=== PATIENT | female | born 1980 | race African-American/Black ===

== ENCOUNTER 2020-02-06 09:55 | Emergency (ER) | payer OTHER, SELFPAY ==
[2020-02-06] VITALS (7 sets, daily range): BP systolic 107–125; BP diastolic 72–82; PULSE 73–94; RESP 18–22; TEMP 36.3; O2SAT 99–100
--- NOTE | ~2020-02-06 | CT_ITS ---
EXAMINATION: CTA BRAIN/CAROTID DATE: 02/06/2020 12:08 INDICATION: Syncope. Right-sided weakness. TECHNIQUE: Computed tomographic angiography (CTA) of the head and neck was performed with 100 mL Omni paque-350 intravenous contrast. Multiplanar reconstructions and maximum intensity projection 3D-recon structions of the carotid arteries and of the intracranial arteries were created by the technologist on a separate workstation. Automated exposure control and iterative reconstruction technique were emp loyed.The dose-length product was 1063.56 mGy-cm. COMPARISON: Head CT dated 02/06/2020 FINDINGS: Carotid arteries: There is no evident plaque with 0% stenosis of the left and right carotid bulbs relative to normal di stal artery lumen diameter (NASCET criteria). The cervical soft tissues are unremarkable. Visualized airway and apices of the lungs are clear. Smooth likely positional reversal of the normal cervical lo rdosis with otherwise normal-appearing cervical spine. Intracranial arteries There is no hemodynamically significant stenosis in the vertebral, basilar and internal carotid arter ies. Vertebral arteries are codominant. There are no aneurysms identified. Both A1 and P1 segments a re patent. There are also patent bilateral posterior commuting arteries. Cerebral arterial arborizati on appears symmetric. No abnormally enhancing brain lesions. IMPRESSION: 1. Normal CT angiogram of the brain and carotid arteries. Reviewed, dictated and finalized at location A.
--- NOTE | ~2020-02-06 | CT_ITS ---
EXAMINATION: CT brain wo con DATE: 02/06/2020 10:29 INDICATION: Syncope TECHNIQUE: Computed tomography (CT) of the head was performed without intravenous contrast. Sagittal and coronal reconstructions were performed. The mA was adjusted according to patient size. Iterative reconstruction technique was employed. The dose-length product was 681.00 mGy-cm. COMPARISON: head CT dated 04/03/2009 FINDINGS: No acute intracranial hemorrhage, acute infarction or abnormal extra axial fluid collection. Ventricl es are normal and symmetric. No mass/mass effect. The orbits, paranasal sinuses and mastoid air cells are normal. IMPRESSION: 1. Normal head CT. Reviewed, dictated and finalized at location A. IMPRESSION: 1. Normal head CT.
--- NOTE | 2020-02-06 10:05 | ECG_ITS ---
Measurements Intervals [place] Rate: 87 P: 52 MD: 170 QRS: -12 QRSD: 76 T: 25 QT: 363 QTc: 437 Interpretive Statements SINUS RHYTHM WITH MARKED SINUS ARRHYTHMIA DELAYED PRECORDIAL R/S TRANSITION NONSPECIFIC T-WAVE ABNORMALITY- DIFFUSE LEADS BASELINE ARTIFACT- I, II, III, AVR, AVL, AVF, V4-V6 BORDERLINE ECG Electronically Signed On 02-06-2020 10:20:04 CDT by Adrian Pascual D.O.
[2020-02-06 10:43] LABS: Basophils Percent Auto 0.6 % (0.2-1.2); Eosinophils Absolute Auto 0.1 K/mm3 (0-0.3); Eosinophils Percent Auto 1.1 % (0-4.4); Hematocrit 38.5 % (37.0-47.0); Hemoglobin 12.9 g/dL (12.0-15.0); Immature Granulocyte Absolute 0.03 K/mm3 (0.00-0.031); Immature Granulocyte Percent A 0.5 % (0-0.5); Lymphocytes Absolute Auto 1.03 K/mm3 (0.9-3.2); Lymphocytes Percent Auto 16.2 % (18.3-44.2); Mean Corpuscular HGB Conc 33.5 g/dl (32-36); Mean Corpuscular Hemoglobin 28.9 pg (26-34); Mean Corpuscular Volume 86.3 fl (80-100); Mean Platelet Volume 9.7 fl (7.4-10.4); Monocytes Absolute Auto 0.4 K/mm3 (0.1-0.6); Monocytes Percent Auto 5.8 % (2.6-8.5); Neutrophils Absolute Auto 4.8 K/mm3 (1.3-6.7); Neutrophils Percent Auto 75.8 % (45.5-73.1); Platelet Count Result 273 k/mm3 (150-375); Red Blood Count 4.46 M/mm3 (4.2-5.4); Red Cell Distribution Width 12.6 % (11.5-14.5); White Blood Count 6.3 K/mm3 (4.5-10.0)
[2020-02-06 10:56] LABS: Anion Gap 13 mmol/L (8-16); Blood Urea Nitrogen 12 mg/dL (7-17); Calcium 9.1 mg/dL (8.4-10.2); Carbon Dioxide 25 mmol/L (22-30); Chloride 104 mmol/L (98-107); Estimated CRCL calculation 81 ml/min; Estimated Glomerular Filt Rate > 60; Glucose 102 mg/dL (65-105); Potassium 3.2 mmol/L (3.4-5.0); Sodium 142 mmol/L (137-145)
--- NOTE | 2020-02-06 11:45 | PC.NURSE ---
Patient placed on monitor at this time. Reporting that some feeling is coming back in her right arm. Remains AOX4
--- NOTE | 2020-02-06 11:48 | PC.NURSE ---
Patient taken to CT
--- NOTE | 2020-02-06 11:49 | PC.NURSE ---
Patient unable to urinate for preg test. Willing to sign CT release for contrast.
--- NOTE | 2020-02-06 13:09 | ED.SYNCOPE ---
HPI - Syncope General Chief Complaint: Syncope Stated Complaint: syncope at 0830 Time Seen by Provider: 02/06/20 11:01 Source: patient and family Mode of arrival: ambulatory Limitations: no limitations History of Present Illness HPI narrative: Patient is a 39-year-old female who presents to emergency department for evaluation of having possibly had syncope this morning patient upon waking was having difficulty expressing herself as well as numbness on the right upper and lower extremity. Patient notes since the onset around 8:00 this morning the symptoms have improved but she continues to have some residual paresthesias to the right upper and lower extremity. On arrival patient is in the room in no distress does not appear uncomfortable. Patient denies any pain. Patient has not been seen for this complaint nor has she had similar occurrence in the past. Patient has had tremors in the mornings for the last several weeks after starting Cymbalta for anxiety. Patient is followed by primary care Related Data Home Medications Medication Instructions Recorded Confirmed duloxetine mg PO 02/06/20 Allergies Allergy/AdvReac Type Severity Reaction Status Date / Time No Known Allergies Allergy Mild Verified 02/06/20 10:08 Review of Systems Review of Systems: All systems reviewed & are unremarkable except as noted in HPI and below PMFSH Past Medical History Medical History (Updated 02/06/20 @ 13:16 by Luis A Rea PA-C) Anxiety Social History Social History Smoking status: Never smoker Alcohol intake: current Exam Narrative: Exam Narrative: GENERAL: Well-appearing, well-nourished, and in no acute distress. HEAD: Normocephalic, atraumatic. EYES: PERRLA and EOMI. ENT: Nares clear, no rhinorrhea or epistaxis. Mucous membranes moist. NECK: Supple. No adenopathy or masses. No carotid bruits or JVD CHEST: Clear to auscultation. No respiratory distress. No wheezes rales or rhonchi HEART: Regular rate and rhythm. No murmur heard. Normal peripheral pulses. ABDOMEN: Soft, nontender, nondistended, EXTREMITIES: Normal range of motion. No edema. SKIN: Warm, dry, no rash. NEURO: No focal deficits. Alert and oriented x3. Cranial nerves II through XII grossly intact. Normal speech and gait. Motor and sensory intact and symmetrical in the extremities. Cerebellar intact. No pronator drift. Normal nokodb-ov-tutx and zldj-bl-bewu. PSYCH: Normal mood and affect. Course Course Emergency Course: Patient in the room at this time symptom-free aside for some subjective paresthesias to the upper and lower extremities right-sided only. Patient was evaluated and will be discharged home with follow-up with primary care and neurology advised to discontinue the Cymbalta. Patient will be discharged with family patient feels comfortable with this and has been provided with reasons to return Vital Signs Vital signs: Vital Signs Temperature 97.3 F L 02/06/20 10:06 Pulse Rate 73 02/06/20 10:06 Respiratory Rate 20 02/06/20 10:06 Blood Pressure 125/81 02/06/20 10:06 Pulse Oximetry 100 02/06/20 10:06 Temperature 97.3 F L 02/06/20 10:06 Pulse Rate 94 02/06/20 12:00 Respiratory Rate 22 H 02/06/20 12:00 Blood Pressure 122/81 02/06/20 12:00 Pulse Oximetry 100 02/06/20 12:00 MDM - Syncope MDM Narrative Medical decision making narrative: Patient is remained in no distress with no high risk changes in the blood work or imaging today. there are no focal neurological deficits on exam. Subarachnoid hemorrhage is felt to be unlikey at this time. There is no history of fever, and neck is supple without meningismus, making meningitis unlikely. No traumatic history or signs of trauma on exam. No risk factors for CVA, risk factors reviewed. NO ocular signs on exam and in history to suggest acute glaucoma. Patient symptoms felt appropriate for outpatien
== END 2020-02-06 13:26 | disposition home or self-care (01) ==
PROVIDERS: Emergency Provider Emergency Medicine; PCP Emergency Medicine
DX: R20.2 Paresthesia of skin (principal); F41.9 Anxiety disorder, unspecified; R94.31 Abnormal electrocardiogram [ECG] [EKG]
CPT/HCPCS: 36415; 70450; 70496; 70498; 80048; 85025; 93005; 99284; Q9967

== ENCOUNTER → 2021-06-14 09:04 | Outpatient (CLI) | payer OTHER, SELFPAY ==
--- NOTE | ~2021-06-14 | XR_ITS ---
EXAMINATION: XR UGIAC wo kub EXAM DATE: 06/14/2021 10:25 INDICATION: Abdominal pain, bloating, early satiety . TECHNIQUE: Standard single and double contrast barium upper GI examination was performed by radiolog ist Dylan Larose M.D. Pulsed dose reduction fluoroscopy was used with fluoroscopic time of 0.5 minut es. The DAP for this procedure was 0.95 Gycm2. A total of 92 images obtained for the exam. There i s no prior study for comparison. FINDINGS: There is no esophageal stricture, diverticulum or mass identified. Gastroesophageal juncti on is normal in appearance. Reflux was not demonstrated during this examination. The stomach has a normal appearance without evidence of mass lesion, ulceration or filling defect. T here is normal rugal fold pattern. The duodenum and duodenal sweep are normal in appearance. IMPRESSION: Normal exam. Reviewed, dictated and finalized at location B. H CUTTER IMPRESSION: Normal exam.
--- NOTE | ~2021-06-14 | US_ITS ---
EXAMINATION: US abdomen complete DATE: 06/14/2021 09:30 INDICATION: Abdominal pain. TECHNIQUE: Multiple grayscale and Doppler ultrasound images of the abdomen were obtained. COMPARISON: None FINDINGS: Abdominal aorta is normal in caliber. Inferior vena cava is normal. The visualized portions of the head and body of the pancreas are normal. The liver is normal without focal lesion. There is normal flow in main portal vein. The gallbladder is normal in size. No gallstones or gallbladder wall thickening. There is no sonographic Moody sign. The common duct is normal and measures 4 mm. The sp desirae is normal in size. The kidneys are normal in size. IMPRESSION: 1. Normal complete abdomen ultrasound. Reviewed, dictated and finalized at location A. TIC OPERATOR
== END ==
PROVIDERS: PCP Emergency Medicine; Visit Provider Emergency Medicine
DX: R10.9 Unspecified abdominal pain (principal); R14.0 Abdominal distension (gaseous); R68.81 Early satiety
CPT/HCPCS: 74246; 76700

== ENCOUNTER 2022-05-27 12:19 | Outpatient (CLI) | payer OTHER, SELFPAY ==
--- NOTE | ~2022-05-27 | MMUS_ITS ---
EXAMINATION: MM diagnostic mook BI w sandra, US breast BI complete HISTORY: Right breast lump, 9:00 TECHNIQUE: Bilateral full field and spot 3-D tomosynthesis images were performed and synthetic 2-D im ages were generated. CAD analysis was submitted and interpreted. High resolution complete bilateral b reast ultrasound ultrasound examination including all 4 quadrants and subareolar areas was performed. COMPARISON: 10/28/2013 bilateral diagnostic mammogram and bilateral breast ultrasound examination BREAST PARENCHYMAL COMPOSITION: There are scattered areas of fibroglandular density. FINDINGS: MAMMOGRAPHIC FINDINGS: Occasional bilateral circumscribed low-density opacities are noted including posterior lower outer le ft breast 6.7 x 11.5 mm circumscribed opacity (craniocaudal Tomosynthesis image 16/74), posterior lef t upper outer quadrant 4.8 x 7 mm circumscribed opacity (craniocaudal Tomosynthesis image 63/74), 3.2 x 5 mm circumscribed outer mid left circumscribed opacity (cranial caudal Tomosynthesis image 26/74. Partially obscured possible masses of right breast. No architectural distortion, malignant calcifications, skin thickening or retraction of either breast is detected. ULTRASOUND: Right breast: 12:00 1 cm from nipple: Parallel circumscribed hypoechoic solid lesion measuring 5 x 13 x 12.6 mm wit hout internal vascularity or posterior shadowing. 5:00 2 cm from nipple: 2.5 x 8.3 mm largely sonolucent circumscribed lesion without internal vascular ity or posterior shadowing 7:00 8 cm from nipple: 3.8 x 4.4 mm circumscribed sonolucency without internal vascularity or posteri or shadowing 9:00 5 cm from nipple: Irregular hypoechoic sclerotic solid lesion with some angular margins, measuri ng up to 4.8 x 8.5 mm; due to the angular margins, ultrasound-guided biopsy is recommended. 10:00 9 cm from nipple: Parallel circumscribed hypoechoic 2.8 x 4.6 x 3.9 mm lesion without internal vascularity or posterior shadowing Left breast: 12:00 3 cm from nipple: Parallel circumscribed 2.7 x 5.5 mm probable cyst 1:00 8 cm from nipple: Multiseptated parallel circumscribed 6.7 x 17 mm lesion without internal vascu larity or posterior shadowing IMPRESSION: 1. Right breast 9:00 4.8 x 8.5 mm lesion 5 cm from nipple with irregular and angular margins (This co rresponds to the clinically reported right breast lump of interest) 2. Ultrasound-guided biopsy of right breast 9:00 lesion BI-RADS category 4, suspicious findings. Dr. Benton telephoned the report and ultrasound-guided biopsy recommendation of right breast 9:00 lesio n on May 27, [address] Sherman. Reviewed, dictated and finalized at location A. EQUIN SANDER AND FINISHER IMPRESSION: 1. Right breast 9:00 4.8 x 8.5 mm lesion 5 cm from nipple with irregular and an gular margins (This corresponds to the clinically reported right breast lump of interest) 2. Ultrasound-guided biopsy of right breast 9:00 lesion BI-RADS category 4, suspicious findings. Dr. Benton telephoned the report and ultrasound-guided biopsy recommendation of r ight breast 9:00 lesion on May 27, [address] Sherman.
== END 2022-05-27 12:20 | disposition home or self-care (01) ==
LOC: ANHIMG 12:20
PROVIDERS: PCP Emergency Medicine; Visit Provider Emergency Medicine
DX: N63.10 Unspecified lump in the right breast, unspecified quadrant (principal)
CPT/HCPCS: 76641; 77062; 77066; G0279

== ENCOUNTER 2022-06-06 12:47 | Outpatient (CLI) | payer OTHER, SELFPAY ==
--- NOTE | ~2022-06-06 | MMUS_ITS ---
EXAMINATION: US GUIDED NEEDLE BIOPSY DATE: 06/06/2022 14:15 UPPER CUTTER INDICATION: Right 9:00 breast mass with irregular and angular margins TECHNIQUE AND FINDINGS: The risks and potential benefits of the procedure were discussed with the patient, and written inform ed consent was obtained. Timeout procedure was performed. After sterile preparation of the right lolis st, 1% lidocaine was utilized for local anesthesia. A 14G spring-loaded biopsy gun needle was advanced to the edge of the region of interest from a later al approach utilizing sonographic guidance. A total of 4 tissue core samples were obtained through t he lesion. An Inrad tissue marker clip was then placed at the biopsy site. Hemostasis was achieved. A sterile bandage was applied. The patient tolerated procedure well and there was no evidence of immediate complication. The patien t was given verbal instructions prior to departing from the department. A two view mammogram was perf ormed to document tissue marker clip placement. The tissue samples were submitted to surgical patholo gy for histologic analysis. IMPRESSION: 1. Successful ultrasound guided biopsy of right 9:00 breast mass with biopsy marker placement. Bebe tate refer to pathology report for histologic analysis. Reviewed, dictated and finalized at Location A. Reviewed, dictated and finalized at location A. R CUTTER IMPRESSION: 1. Successful ultrasound guided biopsy of right 9:00 breast mass with biopsy m arker placement. Please refer to pathology report for histologic analysis.
== END 2022-06-06 12:48 | disposition home or self-care (01) ==
LOC: ANHIMG 12:50
PROVIDERS: PCP Emergency Medicine; Visit Provider Emergency Medicine
DX: N63.10 Unspecified lump in the right breast, unspecified quadrant (principal)
CPT/HCPCS: 19083; 88305; A4648

== ENCOUNTER 2024-01-14 00:52 | Day surgery (SDC) | payer OTHER, SELFPAY ==
[2023-12-23 14:41] VITALS: BMI 25.0
[2024-01-14 07:35] VITALS: BP 110/82; PULSE 94; RESP 20; TEMP 36.3; O2SAT 100; BMI 24.0
--- NOTE | 2024-01-14 07:54 | P.PNAN_ITS ---
Anes - Initial Pre Proc Eval Procedure: Operation Date: 01/14/24 08:30 Proposed Procedures p Esophagogastroduodenoscopy & Colonoscopy - Bradley Sarah MD Date/Time: 01/14/24 07:54 Surgeon: Bradley Sarah MD Pre Op Diagnosis: IBS, Abd.Distension, N&V, Patient Data Age: 43 Gender: F Height: 1.63 m Weight: 63.6 kg Last Vital Signs Temp 36.3 C L 01/14/24 07:35 Pulse 94 01/14/24 07:35 Resp 20 01/14/24 07:35 BP 110/82 01/14/24 07:35 Pulse Ox 100 01/14/24 07:35 O2 Del Method Room Air 01/14/24 07:35 Allergies Allergy/AdvReac Type Severity Reaction Status Date / Time No Known Allergies Allergy Mild Verified 01/14/24 07:41 Home Medications Medication Instructions Recorded Confirmed Type ferrous sulfate 324 mg (65 mg 324 mg PO DAILY 12/23/23 01/14/24 History iron) tablet,delayed release [id number] 1 tablet PO DAILY 12/23/23 01/14/24 History fumarate 18 mg-folic acid 400 mcg tablet (One-A-Day Women's Complete) Patient hx anesthesia problems: none Family hx anesthesia problems: none Results Review: All pre-operative results and documents have been reviewed as part of the pre- operative evaluation. [facility] Past Medical History Medical History Anxiety Social History Social History Smoking status: Never smoker Alcohol intake: never Substance use: never Substance use type: does not use Living arrangements: with family Spiritual care concerns: No Anes - Eval Final PreProcedure Day of Procedure 01/14/24 07:54 Patient weight: normal Heart: regular rate and rhythm Lungs: clear to auscultation Airway: Mallampati scale class II Neurological: alert and oriented Last oral intake: >/= 8 hours ASA classification: II Emergent: no Anesthetic plan: proceed Anesthesia type and monitoring: general GIVS and standard monitoring Results Review: All pre-operative results and documents have been reviewed as part of the pre- operative evaluation. Informed Consent: The patient's anesthetic plan and its attendant risks and benefits were discussed with the patient/family/POA. Questions were solicited and answers provided to the satisfaction of the patient/family/POA.
[2024-01-14 08:12] LABS: BEDSIDEPREGUCG Negative (Negative)
--- NOTE | 2024-01-14 08:17 | PM.HPGS ---
History of Present Illness History of Present Illness Consent: Risks, benefits, and alternatives have been discussed and questions answered. Patient agrees to proceed with procedure. Chief complaint: IBS, Abd.Distension, N&V, Narrative: Aviva Lemus is a 43 year old female here for first egd and colonoscopy, h/o ibs-c and n/v Review of Systems Review of Systems: All systems reviewed & are unremarkable except as noted in HPI and below PMFSH Past Medical History Medical History (Updated 01/14/24 @ 08:18 by Bradley Sarah MD) Anxiety Irritable bowel syndrome with constipation Nausea & vomiting Social History Social History Smoking status: Never smoker Alcohol intake: never Substance use: never Substance use type: does not use Living arrangements: with family Spiritual care concerns: No Meds Home Medications and Allergies Home Medications Medication Instructions Recorded Confirmed Type ferrous sulfate 324 mg (65 mg 324 mg PO DAILY 12/23/23 01/14/24 History iron) tablet,delayed release [id number]-[id number]-[id number] 1 tablet PO DAILY 12/23/23 01/14/24 History fumarate 18 mg-folic acid 400 mcg tablet (One-A-Day Women's Complete) Allergies Allergy/AdvReac Type Severity Reaction Status Date / Time No Known Allergies Allergy Mild Verified 01/14/24 07:41 Vital Signs Vital Signs - 24 hr 01/14/24 07:35 Temperature 97.4 F L Pulse Rate 94 Respiratory Rate 20 Blood Pressure 110/82 Pulse Oximetry 100 Oxygen Delivery Room Air Exam Const: General: comfortable and no acute distress HENMT: Face/Nose/Sinus: Normal nares present Eyes: General: appearance normal, both eyes and all related structures Neck: Neck: no JVD Resp: Auscultation: clear to auscultation bilaterally Cardio: Rate: regular rate Rhythm: regular rhythm GI: Inspection: non-distended GI Palp: Yes Soft to palpation Skin: General skin exam: normal color Neuro: General: gait normal Speech: normal speech Extrem: General: normal to inspection Psych: Mental Status: mental status grossly normal Assessment and Plan Assessment and plan (1) Nausea & vomiting: Code(s): R11.2 - Nausea with vomiting, unspecified Status: Acute Assessment and Plan: egd (2) Irritable bowel syndrome with constipation: Code(s): K58.1 - Irritable bowel syndrome with constipation Status: Acute Assessment and Plan: colonoscopy
[2024-01-14] MEDS: LACTATED RINGERS 1,000 ML 150 ML IV CONT (08:34)
--- NOTE | 2024-01-14 08:40 | SUR.OPER ---
EGD END 837 COLONOSCOPY START 841
[2024-01-14 08:53] VITALS: BP 93/61; PULSE 89; RESP 22; O2SAT 97
[2024-01-14 09:03] VITALS: BP 102/69; PULSE 79; RESP 20; O2SAT 100
[2024-01-14 09:13] VITALS: BP 103/70; PULSE 80; RESP 20; O2SAT 100
== END 2024-01-14 09:31 | disposition home or self-care (01) ==
PROVIDERS: Anesthesiology; PCP Emergency Medicine; Referring Provider Emergency Medicine; Visit Provider Internal Medicine Gastroenterology
PROC: 0DJ08ZZ Inspection of Upper Intestinal Tract, Via Natural or Artificial Opening Endoscopic (ICD-10-PCS; CPT 43235; principal; 2024-01-14 08:30)
DX: K58.1 Irritable bowel syndrome with constipation (principal); D12.5 Benign neoplasm of sigmoid colon; K64.8 Other hemorrhoids; K64.4 Residual hemorrhoidal skin tags; K29.80 Duodenitis without bleeding; K29.50 Unspecified chronic gastritis without bleeding
CPT/HCPCS: 45385; 43239; 88305; J2003; J2704; J7120

== ENCOUNTER 2024-07-21 21:01 | Emergency (ER) | payer OTHER, SELFPAY ==
--- NOTE | ~2024-07-21 | XR_ITS ---
XR chest 2V Ordering provider: Malia Cai PA-C History: 43 years Female with . chest pain, SOB . Comparison: None. FINDINGS: MEDIASTINUM: The cardiac silhouette is not enlarged. LUNGS: No infiltrates or pneumothorax. Blunting of the posterior costophrenic angle which may indicat e minimal effusion. OTHER: No free air under the diaphragm. IMPRESSION: Blunting of the posterior costophrenic angle which may indicate minimal effusion. Otherwise, No acute cardiopulmonary pathology. Reviewed, dictated and finalized at location A. IMPRESSION: Blunting of the posterior costophrenic angle which may indicate minimal effusio n. Otherwise, No acute cardiopulmonary pathology.
--- OUTSIDE RECORDS SUMMARY | 2024-07-21 21:04 | XMS_ITS | Clinical Summary ---
Author Organization [facility] Address [address], [address] [place] [address] Phone Care Team Providers Care Edging Machine Feeder Name Role Phone Clint Sherman Primary Care Provider [phone] Mojgan Dyson MD Unavailable Allergies Active Allergy Reactions Criticality Noted Date Comments [place]-Containing Products Vomiting 02/03/2024 Oxycodone Nausea Low 05/30/2023 Wound Dressing Adhesive Rash Medium 05/27/2023 Medications albuterol 108 (90 Base) MCG/ACT Aerosol Solution take 1 Puff by inhalation every 4 hours as needed. Active polyethylene glycol (GLYCOLAX) 17 GM/SCOOP Powder Take 17 g by mouth. Active ibuprofen (Advil) 200 MG Tablet Take 200 mg by mouth every 8 hours as needed. Active Multiple Vitamins-[place] als (MULTIVITAL PO) Take by mouth. Activ e Ferrous Sulfate (Iron) 325 (65 Fe) MG Tablet Take by mouth. Activ e diphenhydrAMIN E HCl (BENADRYL ALLERGY PO) Take by mouth. Act monet docusate sodium (COLACE) 50 MG Capsule Take 50 mg by mouth 2 times daily. Active Magnesium Hydroxide (DULCOLAX PO) Take by mouth. 0 25 Discontinu ed(Therapy completed) Active Problems Problem Noted Date Diagnosed Date Elevated blood pressure reading 02/03/2024 Encounters Date Type Department Care Team Description 06/22/2024 3:30 PM CDT Office Visit [facility] [address] [address] Neena Mcgee APRN, MANAGER FRONT OFFICE Iron deficiency (Primary Dx); Abnormal uterine bleeding (AUB) 06/22/2024 Travel 06/16/2024 3:20 PM EMERGENCY MEDICINE NURSE PRACTITIONER Lab [facility] [address] [address] Lab, [facility] [place] Iron deficiency; Other fatigue; Abnormal uterine bleeding (AUB) 06/16/2024 Travel from Last 3 Months Family History Medical History Relation Name Comments Cancer Father Relation Name Status Comments Brother Alive Child Alive Father Mother Alive Sister Alive Social History Tobacco Use Types Packs/Day Years Used Date Smoking Tobacco: Never Smokeless Tobacco: Never Tobacco Cessation:Counseling Given: Not Answered Alcohol Use Standard Drinks/Week Comments Never 0 (1 standard drink = 0.6 oz pur e alcohol) Comments Unknown Sex and Gender Information Value Date Recorded Sex Assigned at Not on file Legal Sex Female 1:47 PM CDT Gender Identity Not on file Sexual Orientation Not on file Last Filed Vital Signs Vital Sign Reading Time Taken Comments Blood Pressure 124/82 06/22/2024 3:24 PM CDT Pulse 74 06/22/2024 3:24 PM CDT Temperature 36.9 C (98.4 F) 06/22/2024 3:24 PM CDT Respiratory Rate 18 06/22/2024 3:24 PM CDT Oxygen Saturation 97% 06/22/2024 3:24 PM CDT Inhaled Oxygen Concentration - - Weight 67 kg (147 lb 11.2 oz) 06/22/2024 3:24 PM CDT Height 162.6 cm (5' 4 ) 06/22/2024 3:24 PM CDT Body Mass Index 25.35 06/22/2024 3:24 PM CDT Plan of Treatment Upcoming Encounters Date Type Department Care Team (Late st Contact Info) Description 10/21/2024 3:15 PM CDT Office Visit [facility] [address] [address] Mojgan Dyson MD [address] [place] [address] Health Maintenance Due Date Last Done Comments Hepatitis C Virus (HCV) Screening 1981 Mammogram 1981 Hepatitis B Immunization (1 of 3 - 19+ 3-dose series) 2000 Pap Smear 2002 Cervical Cancer Screening (CCS) 09/21/2011 HPV/Cotest 09/21/2011 Discussion re Starting/Frequency of Mammograms 2021 Influenza Immunization (#1) 2023 SARS-COV-2 Immunization (2023- season) 2023 07/30/2020, 07/02/2020 Respiratory Syncytial Virus (RSV) Immunization (Adult) (1 - 1-dose 75+ series) 2056 TdaP Immunization Completed 05/25/2015 Meningococcal Immunization (ACWY) Aged Out No longer eligible b ased on patient's age to complete this topic Pneumococcal Immunization Combined Aged Out No longer eligible b ased on patient's age to complete this topic Rotavirus Immunization Aged Out No lo nger eligible based on patient's age to complete this topic Procedures Procedure Name Priority Date/Time Associated Diagnosis Comments CBC WITH AUTO DIFF OH Routine 06/16/2024 3:43 PM EMERGENCY MEDICINE NURSE PRACTITIONER IRON W/ IRON BINDING CAPACITY OH Routine 06/16/2024 3:43 PM EMERGENCY MEDICINE NURSE PRACTITIONER Iron deficiency Other fatigue Abnormal uterine bleeding (AUB) FERRITIN Routine 06/16/2024 3:43 PM EMERGENCY MEDICINE NURSE PRACTITIONER Iron deficiency Other fatigue Abnormal uterine bleeding (AUB) RETICULOCYTE COUNT (RETIC) Routine 06/16/2024 3:43 PM EMERGENCY MEDICINE NURSE PRACTITIONER Iron deficiency Other fatigue Abnormal uterine bleeding (AUB) from Last 3 Months Results * IRON W/ IRON BINDING CAPACITY OH (06/16/2024 3:43 PM EMERGENCY MEDICINE NURSE PRACTITIONER) IRON 101 50 - 212 ug/dL [facility] UIBC 222 155 - 355 ug/dL [facility] TIBC 323 261 - 478 ug/dl CANCER CIVIL ENGINEERING MANAGER [facility] % Saturation 31 20 - 50 % CANCER CIVIL ENGINEERING MANAGER [facility] 06/16/2024 3:43 PM EMERGENCY MEDICINE NURSE PRACTITIONER Narrative CANCER CIVIL ENGINEERING MANAGER [facility] - 06/17/2024 8:52 AM EMERGENCY MEDICINE NURSE PRACTITIONER Release to patient->Immediate us Halley Samuels APRN, MANAGER FRONT OFFICE LAB SEND OUTS F inal Result CANCER CIVIL ENGINEERING MANAGER [facility] [place] [address], * (ABNORMAL) CBC WITH AUTO DIFF [place] (06/16/2024 3:43 PM EMERGENCY MEDICINE NURSE PRACTITIONER) WBC 5.4 4.0 - 10.0 10*3/uL CANCER CIVIL ENGINEERING MANAGER [facility] HGB 14.3 11.2 - 15.7 g/dL CANCER CIVIL ENGINEERING MANAGER [facility] HCT 42.8 34.1 - 44.9 % CANCER CIVIL ENGINEERING MANAGER [facility] PLT 261 163 - 369 10*3/uL CANCER CIVIL ENGINEERING MANAGER [facility] MPV 10.2 9.4 - 12.4 fL CANCER CIVIL ENGINEERING MANAGER [facility] RBC 4.84 3.93 - 5.22 10*6/uL CANCER CIVIL ENGINEERING MANAGER [facility] MCV 88 79 - 95 fL CANCER CIVIL ENGINEERING MANAGER [facility] MCH 29.5 25.6 - 32.2 pg CANCER CIVIL ENGINEERING MANAGER [facility] MCHC 33.4 32.2 - 36.5 g/dL CANCER CIVIL ENGINEERING MANAGER [facility] RDW 12.7 11.6 - 14.4 % CANCER CIVIL ENGINEERING MANAGER [facility] Neutrophils % 44.8 36.0 - 66.0 % CANCER CIVIL ENGINEERING MANAGER [facility] Lymphocytes % 41.3(H) 19.0 - 40.0 % CANCER CIVIL ENGINEERING MANAGER [facility] Monocytes % 10.0 4.1 - 12.1 % CANCER CIVIL ENGINEERING MANAGER [facility] Eosinophils % 2.6 0.0 - 3.5 % CANCER CIVIL ENGINEERING MANAGER [facility] Basophils % 1.1(H) 0.0 - 1.0 % CANCER CIVIL ENGINEERING MANAGER [facility] Absolute Neutrophils 2.4 1.4 - 6.6 10*3/uL CANCER CIVIL ENGINEERING MANAGER [facility] Absolute Lymphocytes 2.2 0.8 - 4.0 10*3/uL CANCER CIVIL ENGINEERING MANAGER [facility] Absolute Monocytes 0.5 0.2 - 1.2 10*3/uL CANCER CIVIL ENGINEERING MANAGER [facility] Absolute Eosinophils 0.1 0.0 - 0.4 10*3/uL [facility] Absolute Basophils 0.1 0.0 - 0.1 10*3/[facility] CIVIL ENGINEERING MANA[facility]CHI [facility] 06/16/2024 3:43 PM EMERGENCY MEDICINE NURSE PRACTITIONER Halley Samuels APRN, SUSAN LAB SEND OUTS F inal Result Performing Organization Address [facility] Co de Phone Number [facility] [place] [address], * RETICULOCYTE COUNT (RETIC) (06/16/2024 3:43 PM EMERGENCY MEDICINE NURSE PRACTITIONER) Pathologist [facility] Reticulocyte count 1.33 0.50 - 1.70 % [facility] RET-He 34.10 28.20 - 36.60 pg [facility] Comment: RET-He is a direct assessment of incorporation of iron into erythrocyte hemoglobin. It provides an indirect measure of the iron available for new erythropoiesis over past 2-4 days. Blood 06/16/2024 3:43 PM EMERGENCY MEDICINE NURSE PRACTITIONER Narrative [facility] - 06/16/2024 3:53 PM EMERGENCY MEDICINE NURSE PRACTITIONER Release to patient->Immediate Halley Samuels APRN, CNP HEMATOLOGY ORDERA BLES Final Result Performing Organization Address [facility] de Phone Number [facility] CIVIL ENGINEERING MANAGERCHI [facility] [place] [address], * FERRITIN (06/16/2024 3:43 PM EMERGENCY MEDICINE NURSE PRACTITIONER) Ferritin 48 11 - 307 ng/mL [facility] Blood 06/16/2024 3:43 PM EMERGENCY MEDICINE NURSE PRACTITIONER Narrative [facility] - 06/17/2024 3:17 PM EMERGENCY MEDICINE NURSE PRACTITIONER Release to patient->Immediate Halley D Abril COSTUME MAKER, MANAGER FRONT OFFICE CHEMISTRY ORDERAB LES Final Result CANCER CIVIL ENGINEERING MANAGER OF [facility] [place] [address], from Last 3 Months Insurance [employer] [facility] OAP Care Teams Edging Machine Feeder Relationship Specialty Start Date End Date Clint Sherman [address] [place] [address] PCP - General Family Medicine 01/02/24 Mojgan Dyson MD [address] [place] [address] Consulting Physician Oncology 01/02/24
--- OUTSIDE RECORDS SUMMARY | 2024-07-21 21:04 | XMS_ITS | Clinical Summary ---
Author Organization [employer] [facility] Address [address] [place] [address] Care Team Providers Care Fire Protection Engineer Name Role Phone Mike Tiwari MD Primary Care Provider [phone] Allergies No known active allergies Medications polyethylene glycol 3350 (MIRALAX) 17 gram/dose Powder Take 17 Grams by mouth daily Dissolve in 8 ounces of fluid and drink entire liquid . Active Active Problems Problem Noted Date Diagnosed Date Recurrent ventral hernia 02/14/2017 Incarcerated incisional hernia 02/10/2017 Recurrent umbilical hernia 01/29/2017 Slow transit constipation 05/26/2015 Immunizations Immunization Administration Dates Next Due (ADACEL/BOOSTRIX)(10 YR UP) TDAP VACCINE, 0.5ML, IM 05/25/2015 Family History Medical History Relation Name Comments Lung Cancer Father Stroke Paternal Grandmother Thyroid Disease Sister Relation Name Status Comments Father Maternal Grandfather Maternal Grandmother Paternal Grandfather Paternal Grandmother Sister Social History Tobacco Use Types Packs/Day Years Used Date Smoking Tobacco: Never Smokeless Tobacco: Never Alcohol Use Standard Drinks/Week Comments Yes 1 (1 standard drink = 0.6 oz pur e alcohol) OCC Comments No Sex and Gender Information Value Date Recorded Sex Assigned at Not on file Legal Sex Female 11:08 AM MUD MIXER Gender Identity Not on file Sexual Orientation Not on file Last Filed Vital Signs Vital Sign Reading Time Taken Comments Blood Pressure 123/76 03/05/2017 1:29 PM MUD MIXER Pulse 77 03/05/2017 1:29 PM MUD MIXER Temperature 37.2 C (99 F) 02/15/2017 8:27 AM CDT Respiratory Rate 16 02/15/2017 2:25 AM CDT Oxygen Saturation 99% 02/15/2017 8:27 AM CDT Inhaled Oxygen Concentration - - Weight 63.5 kg (140 lb) 03/05/2017 1:29 PM MUD MIXER Height 160 cm (5' 3 ) 03/05/2017 1:29 PM MUD MIXER Body Mass Index 24.8 03/05/2017 1:29 PM MUD MIXER Plan of Treatment Health Maintenance Due Date Last Done Comments HEPATITIS B VACCINES (1 of 3 - 19+ 3-dose series) 2000 PAP SMEAR 05/25/2018 05/25/2015 PAP SMEAR 05/25/2018 05/25/2015, 05/25/2015 CERVICAL CANCER SCREENING 05/25/2020 HPV/Cotest (21-29) 05/25/2020 05/25/2015 HPV/Cotest (30-65) 05/25/2020 05/25/2015 BREAST CANCER SCREENING 2021 INFLUENZA VACCINE (#1) 2023 Preventative Visit- Commercial 04/14/2024 05/25/2015 DTAP/TDAP/TD VACCINES (2 - T d or Tdap) 05/25/2025 05/25/2015 HPV VACCINES Aged Out No longer eligi ble based on patient's age to complete this topic Medical Devices Implanted Type Area Master Ship Device Identifier Shelf Expiration Date Model / Serial / Lot Mesh Mod Kugel Rnd 11.5cm [id number] - [id number] Implanted:Qt y: 1 on 02/14/2017 by Doni Gar III, MD at [facility] Mesh N/A: Abdomen CR [employer] 09/11/2017 [id number] / / [id number] Sealant Floseal 10ml [id number] - [id number] Implanted:Qt y: 1 on 02/14/2017 by Doni Gar III, MD at [facility] Sealant N/A: Abdomen NELSON[employer] [id number] 03/13/2018 [id number] / / [id number] Procedures Procedure Name Priority Date/Time Associated Diagnosis Comments CERV/VAG CYTO SCREEN PAP W/HPV Routine 05/25/2015 4:31 PM MUD MIXER Well woman exam with routine gynecological exam from Last 3 Months or Most Recently Relevant to Health Maintenance Results * CERV/VAG CYTOPATH, THIN PREP RAMPMAN AND HPV (CP) (05/25/2015 4:31 PM MUD MIXER) CLINICAL INFORMATION SEE COMMENT 05/30/2015 2:05 PM MUD MIXER [facility] Comment:Information not prov ided LAST MENSTRUAL PERIOD SEE COMMENT 05/30/2015 2:05 PM MUD MIXER [facility] Comment:INFORMATION NOT PROV IDED PREV PAP: SEE COMMENT 05/30/2015 2:05 PM MUD MIXER [facility] Comment:INFORMATION NOT PROV IDED PREV BX: SEE COMMENT 05/30/2015 2:05 PM MUD MIXER [facility] Comment:INFORMATION NOT PROV IDED SOURCE Endocervix 05/30/2015 2:05 PM MUD MIXER [facility] ADEQUACY: SEE COMMENT 05/30/2015 2:05 PM MUD MIXER [facility] Comment: Satisfactory for evaluation. Endocervical/transformation zone component present. Age and/or menstrual status not provided INTERPRETATION SEE COMMENT 05/30/2015 2:05 PM MUD MIXER [facility] Comment:Negative for intraep ithelial lesion or malignancy. COMMENT SEE COMMENT 05/30/2015 2:05 PM MUD MIXER [facility] Comment: This Pap test has been evaluated with computer assisted technology. PHOTOGRAPHY INSTRUCTOR: SEE COMMENT 05/30/2015 2:05 PM MUD MIXER [facility] Comment: BAB, CT(ASCP) CT screening location: [place] [address] [address] [facility] REVIEW PHOTOGRAPHY INSTRUCTOR: SEE COMMENT 05/30/2015 2:05 PM MUD MIXER [facility] Comment: TAO, CT(ASCP) CT screening location: [place] [address] [address] [facility] HPV E6/E7 Not Detected Not Detected 05/30/2015 2:05 PM MUD MIXER [facility] Comment: This test was performed using the APTIMA HPV Assay ([employer] This assay detects E6/E7 viral messenger RNA (mRNA) from 14 high-risk HPV types (16,18,31,33,35,39,45,51,52,56,58,59,66,68). Endocervical Collection / Unknown 05/25/2015 4:31 PM MUD MIXER 05/25/2015 7:12 PM MUD MIXER Narrative [facility] - 05/30/2015 2:05 PM MUD MIXER Performing Organization Information: Site ID: SL [facility]: [facility] Address: [address] [place] [address] Director: Cindy Lewis MD us Elaine Carrillo MD PATHOLOGY/CYTOLOGY ORDERABLES Final Result [facility] [address] [place] [address], from Last 3 Months or Most Recently Relevant to Health Maintenance [place] [address] [employer] [facility] Address: [facility] [address] [place] [address] Advance Directives For more information, please contact: [phone] * Full Code (Latest Code Status on File) Date Activated Date Inactivated Comments 02/14/2017 7:44 PM 02/15/2017 1:31 PM * Full Code Date Activated Date Inactivated Comments 02/14/2017 3:42 PM 02/14/2017 7:44 PM * Full Code Date Activated Date Inactivated Comments 02/14/2017 2:06 PM 02/14/2017 3:42 PM Care Teams Fire Protection Engineer Relationship Specialty [place] [address] [facility] [address] [place] [address] PCP - General Family Practice 01/29/17
--- OUTSIDE RECORDS SUMMARY | 2024-07-21 21:04 | XMS_ITS | Clinical Summary ---
Author Organization [facility] Address [address] [place] [address] Care Team Providers Care French Tutor Name Role Phone Clint Sherman MD Primary Care Provider [phone] Source Comments [facility],non-owned Affiliates and Associated Physician Practices is amultiple site organization consisting of ambulatory clinics and hospital sitesin [place], [place], [place]. This disclosure is being madepursuant to the Care Everywhere program and may not contain all information available regarding this patient. Last updated 18.[facility] Allergies No known active allergies Medications Be aware that medications may not be up to date on this document. Always verify current medications with the patient. No known medications Social History Tobacco Use Types Packs/Day Years Used Date Smoking Tobacco: Never Smokeless Tobacco: Never Tobacco Cessation:Counseling Given: Yes Sex and Gender Information Value Date Recorded Sex Assigned at Not on file Gender Identity Not on file Sexual Orientation Not on file Last Filed Vital Signs Vital Sign Reading Time Taken Comments Blood Pressure 110/60 02/21/2019 3:07 PM CLIN TECH Pulse 88 02/21/2019 3:07 PM CLIN TECH Temperature 36.6 C (97.8 F) 02/21/2019 3:07 PM CLIN TECH Respiratory Rate 16 02/21/2019 3:07 PM CLIN TECH Oxygen Saturation 98% 02/21/2019 3:07 PM CLIN TECH Inhaled Oxygen Concentration - - Weight 65.8 kg (145 lb) 02/21/2019 3:07 PM CLIN TECH Height 162.6 cm (5' 4 ) 02/21/2019 3:07 PM CLIN TECH Body Mass Index 24.89 02/21/2019 3:07 PM CLIN TECH Plan of Treatment Health Maintenance Due Date Last Done Comments LIPID TESTING 1981 MAMMOGRAM 1981 PAP SMEAR 1981 HIV SCREENING 1996 HEPATITIS C SCREENING 09/16/1999 DTAP/TDAP/TD VACCINES (1 - Tdap) 2000 HEPATITIS B VACCINE (1 of 3 - 19+ 3-dose series) 2000 COVID-19 VACCINE (1 - 2023-2 5 season) 2023 DEPRESSION SCREENING 04/14/2024 INFLUENZA VACCINE (Season Ended) 2024 ZOSTER VACCINE (1 of 2) 09/21/2031 HIB VACCINE Aged Out No longer eligi ble based on patient's age to complete this topic HPV VACCINE Aged Out No longer eligi ble based on patient's age to complete this topic MENINGOCOCCAL (Group B) VACC INE SHARED DECISION-MAKING Aged Out No longer eligibl e based on patient's age to complete this topic MENINGOCOCCAL GROUPS A/C/Y/W VACCINE Aged Out No longer eligible b ased on patient's age to complete this topic PNEUMOCOCCAL VACCINE Aged Out No long er eligible based on patient's age to complete this topic Care Teams French Tutor Relationship Specialty Start Date End Date Clint Sherman MD [facility] [place] [address] PCP - General 06/21/22
--- OUTSIDE RECORDS SUMMARY | 2024-07-21 21:04 | XMS_ITS | Data Portability ---
Author Organization [facility], [facility].CS[facility]phanie, [facility] Address [address] [place] [place] [address] Assessment Encounter Date Assessment Date Assessment LastModified by Organization Details LastModified Time 03/18/2020 03/18/2020 Annual gynecological exam performed. Patient will come back in a year unless there are new symptoms. [email or web address] Not available 03/18/2020 10:09:27 05/17/2022 05/17/2022 Annual gynecological exam performed. Patient will come back in a year unless there are new symptoms. [email or web address] Not available 05/17/2022 15:36:26 Plan of Treatment Reminders Order Date Submit Date Provider Last Modified By Organization Details Last Modified Time Details Appointments None recorded. Lab None recorded. Referral None recorded. Procedures None recorded. Surgeries None recorded. Imaging MAMMO, screening, bilateral 2022 023 [email or web address] [facility], [address], [place], [address], 3 15:55:40 Medication Orders None recorded. Patient TargetsNo targets recorded. Patient InstructionsNo instructions recorded. Reason for Referral None Reported. Results Created Date Observation Date Name Description Value Unit Range Abnormal Flag Note LastModifiedBy Organization Detail LastModifiedTime 03/20/20 20 03/22/2020 pap, LB Pap test thin prep Negati ve for Intrae pithel ial Lesion or Malign eric normal ACCES ALISON #: [id number] Sourc e: Cervi ascencion/E ndoce rvica l LMP: 02/26 Date Taken : 03/20 Speci men Type: ThinP rep Vial Date Repor nikita: 2019 Clini ascencion Data: Cytot ech: Inez Infante , CT( CP) Date Repor nikita: 2019 Speci men Adequ acy: Satis facto ry for evalu ation Endoc ervic al/tr ansfo rmati on zone compo nent prese nt Gener al Categ oriza tion: NEGAT MARIANNA FOR INTRA EPITH ELIAL LESIO N OR MALIG BOB This speci men has been amy zed by the ThinP rep Imagi ng Syste m, an inter activ e compu ter syste m which dewayne ts the lab in the scree katy of ThinP rep Pap Test slide s. Follo wing imagi ng, the slide was revie wed by a Cytot echno logis t and/o r Patho logis t. D N A A S S A Y S R E P O R T TEST NAME RESUL TS ----- ---- ----- -- HPV High Risk Scree n (TMA) ThinP rep Vial The human papil lomav irus (HPV) High Risk Scree n is an FDA-a pprov ed in-vi tro ampli fied nucle ic acid test for the quali tativ e detec tion of E6/E7 viral mRNA. Resul ts juan c bentley corre lated with patilea nt prese ntati on, histo ry, cervi ascencion cytol ogy and other clini ascencion and labor atory findi ngs. See https ://Guidesly wPhase III Development/s ites/ defau lt/fi les/2 018-0 3/AW- [id number] _002_ 01.pd f for furth er infor matio n. Test perfo rmed by [facility], d/b/a [facility], [address], [facility] [place] [address] , Zechariah Maxwell ra, DO, Labor atory Dire tor. HPV High Risk *HPV NOT DETEC NIKITA (TYPE S 16, 18, 31, 33, 35, 39, 45, 51, 52, 56, 58, 59, 66, 68) *HPV: The human papil lomav irus (HPV) High Risk Molly ibarra is an FDA-a pprov ed in-vi tro ampli fied nucle ic acid test for the quali tativ e detec tion of E6/E7 viral mRNA. Resul ts shobj d be corre lated with patie nt prese ntati on, histo ry, cervi ascencion cytol ogy and other clini ascencion and labor atory findi ngs. See https ://EqsQuest/s ites/ defau lt/fi les/2 018-0 3/AW- 73243 _002_ 01.pd f for furth er infor consuelo n. Test perfo rmed by [employer], d/b/a [facility], [address], [place] [address] , Zechariah Maxwell ra, DO, Labor atory Direc tor. End of Repor t Techn ical servi yordy provi ded by [employer], d/b/a [facility], [address] [place] [address] Levi Henley MD, Labor atory Direc tor. Case revie wed and diagn osis rende red at [employer], d/b/[facility], [address] [place] [address] Levi Henley MD, Labor atory Direc tor. CONFI DENTI AL Not Available [facility] ([facility]) [address], [place], [address], 03/22/2020 11:28:26 03/20/20 20 03/22/2020 HPV DNA, high- risk HPV high risk NOT DETECT ED normal Not Available [facility] ([facility]) [address], [place], [address], 03/22/2020 11:28:27 05/17/19 23 05/17/2022 IMAGE GUIDE D PAP AND HPV REGAR DLESS image guided Pap, HPV regardless of Pap result SEE RESULT S BELOW CASE REPOR T: Cytol ogy Gynec ologi ascencion Repor t Case: [id number] [address] seaman Provi christa: Edna arringtonAzam morris Colle cted: 05/17 1553 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 FINAL DIAGN OSIS: Negat marianna for Intra epith elial Lesio n or Brett segovia (NIL) . Elect jovany carrington marivel d by Benoit diaz, Ra ko, CT on 023 at 8:18 PM ----- ----- ----- ----- ----- ----- ----- ----- ----- ----- ----- ----- ----- ----- ----- ----- ----- ---- HPV RESUL TS: HPV mRNA E6/E7 : No HPV mRNA Detec nikita NOTE: This high risk HPV mRNA assay detec ts fourt een high- risk HPV types (16, 18, 31, 33, 35, 39, 45, 51, 52, 56, 58, 59, 66, 68) witho ut diffe renti ation . COMME NT: Note: This speci men was revie wed by a Cytot echno logis t and/o r Patho logis t (as indic ated in this repor t) after evalu ation using the Thinp rep Imagi ng Syste m. CLINI ASCENCION INFOR MATIO N: Menst rual Statu s: LMP (if appli cable ): Clini ascencion Histo ry/Pr jju s Pap: Type of Neopl karen (if appli cable ): Signi fican t Clini ascencion Findi ngs: Other Histo ry: Hormo angela (if appli cable ): PAP EDUCA JALEN L NOTE: The Pap Test is a scree katy test with an inher ent false negat marianna rate. Liqui d-bas ed sampl ing may decre ase, but will not elimi pablo, false negat marianna resul ts. A negat marianna resul t does not precl ude the prese nce and/o r devel opmen t of disea se, since the prese nce of abnor mal cells in the sampl e depen ds on the locat ion of the lesio n and sampl ing techn ique. Zeina nued regul ar scree katy is the best metho d of cance r preve ntion . If repor nikita cytol ogic findi ng do not corre late with physi ascencion and/o r histo rical findi ngs, furth er inves tigat ion is recom michelle d, as clini sreekanth warra nted. Not Available [facility] (Lab) [address], [place], [address], 05/21/2022 21:22:00 Result Notes None recorded. Problems Name Problem SNOMED Code Status Onset Date Resolution Date Notes Provider Name and Address Organization Details Recorded Time Uterine leiomyoma 63637431 Active 2013 Leiomyoma of uterus, unspecifie d;Recorded Elsewhere: No Locatio n: [facility] Leandra rce: EHR Chroni c: N Practice ID: 0001 Billa ble Time: 03:00:00 PM Not Available [facility] 0 16:07:24 Venereal disease screening Active 2013 Screening examinatio n for venereal disease;Pr actice ID: 0001 Not Available [facility] 0 16:07:24 Screening for malignant neoplasm of cervix Active 2013 Pap Smear;Prac joleen ID: 0001 Not Available [facility] 0 16:07:24 Specializ ed medical examinati on Active 2013 Routine gynecologi ascencion examinatio n;Practice ID: 0001 Not Available [facility] 0 16:07:24 Specializ ed medical examinati on Active 2013 Other specified chlamydial diseases;P enzotice ID: 0001 Not Available [facility] 0 16:07:24 Hypertrop hy of uterus 098336104 Active 2013 Hypertroph y of uterus;Pra ctice ID: 0001 Not Available [facility] 0 16:07:24 Breast lump 31914594 Active 2013 Breast lump;Recor ded Elsewhere: No Locatio n: [facility] Leandra rce: EHR Chroni c: N Practice ID: 0001 Billa ble Time: 09:00:00 AM Not Available Counts include 234 beds at the [facility] 0 16:07:24 Vaginitis and vulvovagi nitis Active 2013 Vaginitis; Recorded Elsewhere: No Locatio n: [facility] Leandra rce: EHR Chroni c: N Practice ID: 0001 Billa ble Time: 09:00:00 AM Not Available Counts include 234 beds at the [facility] 0 16:07:24 Problem Notes None recorded. Procedures Surgical History Date Name Laterality Status Provider Name and Address Organization Details Recorded Time 0 Date of Last Pap Smear completed Mary Jeffries [facility] 05/17/2022 15:37:34 Hernia repair w/mesh completed Paola Scott [facility] 03/18/2020 10:10:53 Imaging Results None recorded. Procedure Notes None recorded. Medical Equipment None Reported. Allergies No known drug allergies Medications Name Sig Start Date Stop Date Status Note LastModified by Organization Details LastModified Time amitriptyline 25 mg tablet TAKE 1 TABLET BY MOUTH EVERY DAY AT BEDTIME active Not Available Not Available No t Available Vitals Date Recorded Body height Body mass index (BMI) Body weight Systolic blood pressure Diastolic blood pressure Provider Name and Address Organization Details Last Updated DateTime 05/17/2022 162.56 cm 24 kg/m2 30114.93 g 120 mm[Hg] 72 mm[Hg] Mary Jeffries [facility] 3 15:36:50 Date Recorded Body height Body mass index (BMI) Body weight Systolic blood pressure Diastolic blood pressure Provider Name and Address Organization Details Last Updated DateTime 03/18/2020 162.56 cm 24.5 kg/m2 65990.71 g 110 mm[Hg] 73 mm[Hg] Paola Scott [facility] 0 10:14:51 Social History Question Answer Notes LastModified by [employer] Details LastModified Time Tobacco Smoking Status Never Smoker Paola Scott [facility], [facility] 03/18/2020 10:10:45 What Is Your Level Of Alcohol Consumption? Occasional Information not available 05/17/2022 Are You Blind Or Do You Have Difficulty Seeing? No Information not available 05/17/2022 Are You Deaf Or Do You Have Serious Difficulty Hearing? No Information not available 05/17/2022 What Type Of Diet Are You Following? REGULAR Information not available 05/17/2022 Sex: Unknown Functional Status Question Answer Note LastModified by [employer] Details LastModified Time Do you have difficulty walking or climbing stairs? No Information not available 05/17/2022 Are you able to walk? YESWOREST Information not available 05/17/2022 Are you able to care for yourself? Yes Information not available 05/17/2022 Do you have difficulty dressing or bathing? No Information not available 05/17/2022 What is your exercise level? Occasional Information not available 05/17/2022 Mental Status None recorded. Family History Relationship Description Onset Age of this Age Resolved Age Notes LastModified by Organization Details LastModified Time Paternal Aunt Asthma vschroedter Not a vailable 05/17/2022 15:37:07 Paternal Aunt Asthma vschroedter Not a vailable 05/17/2022 15:37:07 Maternal Aunt Diabetes mellitus vschroedter Not available 06/2022 15:37:07 Maternal Aunt Diabetes mellitus vschroedter Not available 06/2022 15:37:07 Father Carcinoma in situ of lung vschroedter Not available 0 05/17/2022 15:37:07 Daughter Asthma 2 vschroedter Not availa ble 05/17/2022 15:37:07 Notes:Father: Cancer, lung M aternal aunt: Diabetes mellitus Paternal aunt: Asthma Paternal grandmother: Cancer, lung Medical History Condition Response Allergies (Food, seasonal, environmental ) Y Other Y Hepatitis/Liver Disease Y Headaches Y Gynecological History Statement/Question Response Abnormal Pap N Flow Moderate Date of LMP 05/02/2022 Was last menstrual period normal Y STIs/STDs N HPV Vaccine N Duration of Flow (days) 4 Current Control Method Partner Vas ectomy Are cycles usually normal Y Sexually Active? Y Menses Monthly Y Age of first menstrual cycle 14 Date of Last Pap Smear 03/20/2020 Sexual Problems? N LMP Approximate Obstetrics History GPAL:G 1 P 0 0 0 1 Type Value Living 1 Total 1 Past Encounters Encounter ID Performer Location Encounter Start Date Encounter Closed Date Diagnosis/Indication Diagnosis SNOMED-CT Code Diagnosis ICD10 Code Diagnosis Note [id number] Letty Wiseman , [facility] [address] [address] 03/18/2020 10:04:30 03/18/2020 11:32:28 Gynecologic examination 83277542 Z01.419 Take Calcium with Vitamin D 1200mg daily if not receiving in daily diet. It is strongly advised to have an annual flu shot and up can obtain at most pharmacies . If you have not had a TDap shot in the last 10 years you should obtain one as well. Discussed with patient & provided with informatio n regarding Gardisil vaccine to prevent the 4 strains for HPV that cause cervical cancer if under age 26. Encourage safe sexual practices, to use condoms and limit partners if not already in a monogamous relationsh ip. Do monthly self breast exams. Have mammogram yearly or every other year depending on family history. BRCA testing is now available for patients with strong genetic history of female cancer. If interested contact the office. Engage in daily exercise of low impact aerobic exercise 45-60 minutes 4-5 times weekly. Avoid tobacco and illicit drugs as well as using moderation with alcohol intake less than 1-2 8 oz beverages daily. This lifestyle behavior pattern will lead to less health conditions and longer life span. If BMI greater than 25 weight watchers or dietary consult advised. Patient received above instructio ns, and questions have been answered. If you have any questions please call or respond to this email. Patient was made aware of the patient portal and may obtain a paper copy of today's plan if desired. Monogamous relationsh ip x 20yrs Hx of norm pap/hpv Pap/hpv updated for our files Declined need std Regular menses No issues or complaints [id number] Letty Wiseman , [facility] [address] [address] 05/17/2022 15:27:24 05/20/2022 16:24:53 Gynecologic examination 73882798 Z01.419 Take Calcium with Vitamin D 1200mg daily if not receiving in daily diet. It is strongly advised to have an annual flu shot and up can obtain at most pharmacies . If you have not had a TDap shot in the last 10 years you should obtain one as well. Discussed with patient & provided with informatio n regarding Gardisil vaccine to prevent the 4 strains for HPV that cause cervical cancer if under age 26. Encourage safe sexual practices, to use condoms and limit partners if not already in a monogamous relationsh ip. Do monthly self breast exams. Have mammogram yearly or every other year depending on family history. BRCA testing is now available for patients with strong genetic history of female cancer. If interested contact the office. Engage in daily exercise of low impact aerobic exercise 45-60 minutes 4-5 times weekly. Avoid tobacco and illicit drugs as well as using moderation with alcohol intake less than 1-2 8 oz beverages daily. This lifestyle behavior pattern will lead to less health conditions and longer life span. If BMI greater than 25 weight watchers or dietary consult advised. Patient received above instructio ns, and questions have been answered. If you have any questions please call or respond to this email. Patient was made aware of the patient portal and may obtain a paper copy of today's plan if desired. Pap/hpv sent STD Screen declined Genetic Screen discussed Colon Screen na Dexa Screen na Routine Labs [facility] ordered Screening mammography 24 [id number] Z12.31 Health Concerns Section Related Observation LastModified by Organization Detai ls LastModified Time None Recorded Concern Status LastModified by Organization Details LastModified Time None Recorded Advance Directives Directive None Recorded Payers Encounter Date Sequence Insurance Name Policy Number Policy Ford Covered Member ID Ford Member ID Guarantor Name 03/18/2020 1 [employer] - DOS PRIOR TO 20 - [facility] [employer] Aviva Lemus [id number] OI [id number] SOI Aviva Lemus 05/17/2022 1 [employer] - US NOW (INDEMNITY) [id number] Aviva Lemus [id number] OI Aviva Lemus Notes Date Note Type Note Provider Name and Address Organization Details Recorded Time 03/18/2020 text/html Annual GYNReport ed bypatient.History: no gynecologic complaints Menstrual cycle:Normal menses Urinary symptoms:No hematuria; No incontinence Vulva:No genital lesion Vagina:Normal vaginal discharge Breast:No breast pain; No breast lump; No nipple discharge Current Contraception:Sati sfied with current contraception; Monogamous relationship; Partner had vasectomy Sexual complaints:No sexual complaints; No pain during intercourse; Normal libido Menopausal Symptoms:No menopausal symptoms; Normal vaginal lubrication Psychological symptoms:No depression; No anxiety; No PMDD Preventive measures:Encourage self breast examination; Encourage regular exercise; Encourage no tobacco use; Encourage regular mammograms starting age 40 BRENDEN Bryan- [address], [place], [address], [facility] 03/18/2020 11:32:26 05/17/2022 text/html Annual GYNReport ed bypatient.History: no gynecologic complaints Menstrual cycle:Normal menses Urinary symptoms:No hematuria; No incontinence Vulva:No genital lesion Vagina:Normal vaginal discharge Breast:No breast pain; No breast lump; No nipple discharge Current Contraception:Sati sfied with current contraception; Partner had vasectomy Sexual complaints:No sexual complaints; No pain during intercourse; Normal libido Menopausal Symptoms:No menopausal symptoms; Normal vaginal lubrication Psychological symptoms:No depression; No anxiety; No PMDD Preventive measures:Encourage self breast examination; Encourage regular exercise; Encourage no tobacco use; Encourage regular mammograms starting age 40; Needs to schedule mammogram SOLANGE Bryan [address], [place], [address], [facility] 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 Status 03/18/20 20 1 CLOSED Fetus Data First Name Last Name Admitted to NICU Weight (g) Sex Living Outcome Pediatric Complications Fetus ID Race Codes Race Delivery Type [id number] Primary Carlos Calculation Initial Carlos Date Initial Exam Date Initial Exam Provider Initial Ultrasound Date Last Menstrual Period Date Ultra Sound Weeks Gestation 0 Eighteen To Twenty Week Carlos Update Ultra Sound Date Fundal Height At Umbil Quickening Date Ultra Sound Latest Weeks Gestation Final Carlos Confirmed By Final Carlos Confirmed Date Final Carlos Date Ultra Sound Latest Days Gestation 0 0 Menstrual History Last Menstrual Date Menses Monthly On Bcp Conception Prior Menses Frequency Hcg Plus Date Menarche Onset Age Delivery Information Delivery Date Delivery Type Labor Anesthesia Weeks Gestation Incision Type Labor Labor Length Hrs Delivered By Post Complications Tubal Sterilization Discharge Date Comments 1 Discharge Information Feeding Method Contraceptive Method Maternal HG B and HCT Levels
--- OUTSIDE RECORDS SUMMARY | 2024-07-21 21:04 | XMS_ITS | Continuity of Care Document ---
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 Name Role Phone Clint Sherman MD Unavailable Unavailable Allergies, Adverse Reactions, Alerts Substance Reaction Status Criticality No Known Allergies Active No Inform ation Medications Medication Instructions Dosage Effective Dates (start - stop) Status Comments prednisone 20 mg tablet take 3 Tablet by oral route every day 60 MG - Active albuterol sulfate HFA 90 mcg/actuation aerosol inhaler inhale 1 puff by inhalation route every 4 - 6 hours as needed as needed 1 puff - Active PRN for sob Procedures Procedure Date OFFICE/OUTPATIENT VISIT, EST PREV VISIT, EST, AGE 40-64 OFFICE/OUTPATIENT VISIT, EST OFFICE/OUTPATIENT VISIT, EST OFFICE/OUTPATIENT VISIT, EST PREV VISIT, EST, AGE 40-64 OFFICE/OUTPATIENT VISIT, EST OFFICE/OUTPATIENT VISIT, EST OFFICE/OUTPATIENT VISIT, EST OFFICE/OUTPATIENT VISIT, EST PREV VISIT, EST, AGE 18-39 OFFICE/OUTPATIENT VISIT, EST OFFICE/OUTPATIENT VISIT, EST OFFICE/OUTPATIENT VISIT, EST OFFICE/OUTPATIENT VISIT, EST PREV VISIT, NEW, AGE 18-39 OFFICE/OUTPATIENT VISIT, NEW Advance Directives Directive Yes / No Effective Date File Name No Information Encounters Encounter Description Practice Location Reason(s) For Visit Diagnoses Date Provider Providers Copied on Encounter OFFICE/OUTPA TIENT VISIT, [facility], [address], [place], [place], [id number], tel:[phone] [facility] GI (chief complaint) cough1 (chief complaint) iron (chief complaint) Acute bronchitisIron deficiencyMixed irritable bowel syndrome [address], [place], [place], [address] , [place]. tel:[phone] PREV VISIT, EST, AGE 40-64 [facility], [address], [place], [place], [address], [place] tel:[phone] [facility] physical (chief complaint) Encounter for general adult medical exam w abnormal findingsMixed irritable bowel syndromeAbnormal weight lossAlopeciaHalitos is [address], [place], [place], [address] , [place]. tel:[phone] OFFICE/OUTPA TIENT VISIT, EST [facility], [address] [place], [address], [place] tel:[phone] [facility] nevus1 (chief complaint) ADD (chief complaint) IBS1 (chief complaint) migraine1 (chief complaint) Inconclusive mammogramNevus, non-neoplasticAtten tion deficitMigraine without aura, not intractable, without status migrainosusMixed irritable bowel syndrome [address], [place], [place], [address] , [place]. [phone] OFFICE/OUTPA TIENT VISIT, [facility], [address] [place], [address], [place] tel:[phone] [facility] mole1 (chief complaint) ADD (chief complaint) right breast mass1 (chief complaint) Lump in the right breastNevus, non-neoplasticAtten tion deficit [address], [place], [place], [address] , [place]. tel:[phone] PREV VISIT, EST, AGE 40-64 [facility], [address], [place], [place], [address], [place] tel:[phone] [facility] physical (chief complaint) Lump in the right breastEncounter for general adult medical exam w abnormal findingsMigraine without aura, not intractable, without status migrainosusMixed irritable bowel syndromeGilbert syndrome [address], [place], [place], [address] , [place]. tel:[phone] OFFICE/OUTPA TIENT VISIT, EST [facility], [address], [place], [place], [address], [place] tel:[phone] [facility] IBS1 (chief complaint) migraine1 (chief complaint) cyst1 (chief complaint) breast1 (chief complaint) Mixed irritable bowel syndromeEpidermal cystMigraine without aura, not intractable, without status migrainosusLump in the right breast [address], [place], [place], [address] , [place]. tel:[phone] OFFICE/OUTPA TIENT VISIT, EST [facility], [address], [place], [place], [address], [place] tel:[phone] [facility] GI (chief complaint) migraine1 (chief complaint) cyst1 (chief complaint) Mixed irritable bowel syndromeChronic migraine w/o aura, not intractable, w/o stat migrEpidermal cystAllergy to other foods [address], [place], [place], [address] , [place]. tel:[phone] OFFICE/OUTPA TIENT VISIT, EST [facility], [address], [place], [place], [address], [place] tel:[phone] [facility] GI (chief complaint) migraine1 (chief complaint) bili1 (chief complaint) Mixed irritable bowel syndromeMigraineDis order of bilirubin metabolism, unspecifiedAllergy to other foods [address], [place], [place], [address] , [place]. [phone] PREV VISIT, EST, AGE 18-39 [facility], [address], [place], [place], [address], [place] tel:[phone] [facility] physical (chief complaint) Encounter for general adult medical exam w abnormal findingsDisorder of bilirubin metabolism, unspecifiedMigraine Mixed irritable bowel syndrome [address], [place], [place], [address] , [place]. tel:[phone] OFFICE/OUTPA TIENT VISIT, [facility], [address], [place], [place], [address], [place] tel:[phone] [facility] sick (chief complaint) Viral infection [address], [place], [place], [address] , [place]. tel:[phone] OFFICE/OUTPA TIENT VISIT, [facility], [address], [place], [place], [address], [place] tel:[phone] [facility] syncope1 (chief complaint) anxiety1 (chief complaint) DepressionSyncope and collapseParesthesia of skin [address], [place], [place], [address] , [place]. tel:[phone] OFFICE/OUTPA TIENT VISIT, EST [facility], [address], [place], [address], [place] tel:[phone] [facility] bilirubin (chief complaint) fatigue1 (chief complaint) yawning1 (chief complaint) anxiety1 (chief complaint) FatigueHeadache, unspecifiedDepressi onDisorder of bilirubin metabolism, unspecifiedProteinu main [address], [place], [place], [address] , [place]. tel:[phone] PREV VISIT, NEW, AGE 18-39 [facility], [address] [place], [place], [address], tel:[phone] [facility] physical (chief complaint) Encounter for general adult medical exam w abnormal findingsFatigueHead acheDepression [address], [place], [place], [address] , [place]. tel:[phone] Family History Family Member Type Diagnosis Age At Onset Mother Problem Alive and well Sister Problem Thyroid disorder Brother Problem Alive and well Father Problem of lung CA (Cause Of De ath) 48 Payers Payer name Insurance type Covered libertarian ID Authoriza tion(s) No Information Social History Type Description Quantity Date Captured Comments Alcohol Use Details Caffeine Use Details Unknown Tobacco Use Status Current non-smoker Smoking Status Never smoker Sex Female Vital Signs Date / Time: Height Weight BMI Pulse Rate Blood Pressure Temperature Respiratory Rate Body Surface Area Head Circumference BMI percentile Pulse Ox Inhaled Ox 3:56 PM 64.00 in 147.60 lbs 25.3 4 kg/m eter (2) 92 /min 135/86 mm[Hg] 97.7 F 16 /min 98 21 Chief Complaint And Reason For Visit From encounter dated '01/01/2024 15:51'. GI (chief complaint). Description: Pt states that she took omeprazole x 30 days and she no longer has any upper GI issue including nausea, vomiting, abd pain, etc Pt also no longer has any constipation or diarrhea. Pt has not done EGD and colonoscopy. pt also has not done ultrasound yet. cough1 (chief complaint). Description: Pt c/o acute onset of dry cough, sob when lying down, chest tightness, feeling dizzy since 3 days ago. Pt also has some headache with nausea, vomiting and myalgia. Pt also has chill Pt denies any fever. Pt also feels mild sob in general. Pt went [facility] urgent [facility] and she had blood test and COVID test which were all negative. Pt was given some nausea mediation only Pt currently feels chest tightness, dry cough with sob iron (chief complaint). Description: Pt has rather severe iron deficiency. pt has heavy period Pt denies any GI bleeding Pt is not anemic. Her UA was ok without blood at urgent care yesterday pt doesfeel fatigue Plan Of Treatment Date Type Action Status Referral Ordered: Hematology (related to Iron deficiency) ordered Referral Ordered: Referrals: Hematology. Evaluate and treat ordered Referral Ordered: COLONOSCOPY AND BIOPSY ordered Referral Ordered: MAMMOGRAM, SCREENING ordered Referral Ordered: SUJEY GARCIA -Podiatric Medicine & Surgery Service Providers : Consulting Practice Director (related to Nevus, non-neoplastic) ordered Referral Referred To: SUJEY GARCIA [facility] [facility],[address] [place], [place], [phone] Ordered: Referrals: Podiatric Medicine & Surgery Service Providers : Consulting Practice Director. SUJEY GARCIA. Evaluate and treat ordered Referral Ordered: US GUIDANCE ordered Referral Ordered: MAMMOGRAM, BOTH BREASTS ordered Referral Ordered: Otolaryngology (related to Epidermal cyst) ordered Referral Ordered: Referrals: Otolaryngology. Evaluate and treat ordered Referral Referred To: Chandrakant Gonzalez MD [address] [facility]
[place], [address] Ordered: Referrals: Chandrakant Gonzalez MD Evaluate and treat ordered Referral Ordered: US EXAM, ABDOM, COMPLETE ordered History Of Present Illness Encounter Date Complaint History Of Prese nt Illness GI Pt states that s he took omeprazole x 30 days and she no longer has any upper GI issue including nausea, vomiting, abd pain, etc Pt also no longer has any constipation or diarrhea. Pt has not done EGD and colonoscopy. pt also has not done ultrasound yet. cough1 Pt c/o acute ons et of dry cough, sob when lying down, chest tightness, feeling dizzy since 3 days ago. Pt also has some headache with nausea, vomiting and myalgia. Pt also has chill Pt denies any fever. Pt also feels mild sob in general. Pt went to urgent care yesterday and she had blood test and COVID test which were all negative. Pt was given some nausea mediation only Pt currently feels chest tightness, dry cough with sob iron Pt has rather se kirt iron deficiency. pt has heavy period Pt denies any GI bleeding Pt is not anemic. Her UA was ok without blood at urgent care yesterday pt does feel fatigue physical Pt needs annual physical. Pt c/o postprandial nausea and vomiting for the past two months. Regardless of the food. Pt c/o postprandial bloating as well but no yokasta pain. Pt had bilateral breast reduction, tummy tuck and hernia repair and lipo 360 recently and she lost 25 pounds Pt denies any GERD. pt feels that she has foul breath lately. Pt has vague constipation and non-bloody diarrhea and she weaned herself off amitriptyline due to hair loss from amitriptyline. migraine1 Pt has history o f migraine headache Pt denies any head injury or waking up at night with headache Pt has not had any migraine since on amitriptyline. nevus1 Pt has dark nevu s left plantar surface of foot and she saw podiatry and had negative biopsy. IBS1 Pt has history o f mixed IBS with diarrhea and constipation and bloating. She does have mild food allergy. She was evaluated by automation specialist and she was found to have mild environmental allergy as well but not bad to take any medication. She was told food allergy is benign. pt does not have any anaphylactic reaction to food. Pt states that her GI symptoms are much improved with amitriptyline. Pt needs refill. Pt does not want endoscopy Pt denies any weight loss, early satiety, GI bleeding, etc ADD Pt c/o feeling i nability to focus and concentrate and complete tasks for long time Pt keeps interrupting other people conversation Pt feels easily distracted .Pt has difficult time completing projects and she feels that her brain is all over the place. Pt has above symptoms for years. Pt feels that it is affecting her performance at work. Pt picked up [employer] recently but she has not started it yet right breast mass1 Pt denies any breast issue Pt did have right breast cyst biopsied which was benign fibroadenoma. ADD Pt c/o feeling i nability to focus and concentrate and complete tasks for long time Pt keeps interrupting other people conversation Pt feels easily distracted .Pt has difficult time completing projects and she feels that her brain is all over the place. Pt has above symptoms for years. Pt feels that it is affecting her performance at work mole1 Pt notices a katelyn k mole bottom of left foot for one year and seems getting bigger and darker. Pt denies any bleeding physical Pt needs annual physical. Pt has IBS and migraine and she is doing well with amitriptyline Pt denies any GI symptoms or headache. Pt denies any abd pain Pt has right breast nodule which she no longer able to feel Pt denies any breast pain or discoloration or nipple retraction Pt denies any lymph node Pt had diagnostic mammo and ultrasound done which showed right breast nodule requiring biopsy. Pt overall feels well. Pt denies any other complaints breast1 Pt noticed a sma ll nontender right breast lump several weeks and subsequently went away. Pt denies any breast pain, redness, warmth, discharge, deformity, axillary lymph, etc. cyst1 Pt has intermitt ent cystic lesion behind left ear. She was evaluated by ENT as well. Her cyst is benign and has not been recurring migraine1 Pt has not had a ny migraine since starting amitriptyline. Pt denies any head injury or waking up at night with headache. IBS1 Pt has history o f mixed IBS with diarrhea and constipation and bloating. She does have mild food allergy. She was evaluated by automation specialist and she was found to have mild environmental allergy as well but not bad to take any medication. She was told food allergy is benign. pt does not have any anaphylactic reaction to food. Pt states that her GI symptoms are much improved with amitriptyline. Pt needs refill cyst1 pt had recurrent cystic lesion behind left ear lobe for two months Pt notices occasional pus drainage from it. Pt denies any itching Pt notices mild pain when she pushes on it. Pt denies any ear pain Pt denies any bleeding. Pt denies any lymph node around her neck, etc Pt denies any acute drainage. Pt denies any redness or warmth. migraine1 Pt has chronic m igraine headache for several years, usually related to skipping meal or if she needs to have BM. Pt states that she has not had any migraine while on amitriptyline . Pt denies any head injury or waking up at night with headache. Pt actually wants to get off amitriptyline because she states that she is not able to drink alcohol while on amitriptyline. Pt does drink socially GI Pt feels abdomin al bloating post food but not sure what type of food, but she thinks onion may triggers it. Pt denies any urge for BM after food Pt has mixed non-bloody loose stool and constipation. Pt denies any GERD or loss of appetite. Pt does c/o early satiety. Pt denies any postprandial abd pain. Pt denies any weight loss. Pt had normal upper GI and ultrasound. Pt states that amitriptyline is doing well controlling her symptoms Pt does have multiple food allergy and she does not have appointment with U allergy until May of next year bili1 Pt has high bili . Pt denies any abd pain or jaundice pt rarely drinks alcohol. Pt had normal abd ultrasound migraine1 Pt has chronic m igraine headache for several years, usually related to skipping meal or if she needs to have BM. Pt has migraine 3-4 times per week. Pt states that she has migraine also if she has to stare at screen for long time. Pt denies any head injury or waking up at night with headache Pt has photophobia and nausea with headache. Pt denies any vision change. Pt states that her headache completely resolved with amitriptyline GI Pt feels abdomin al bloating post food but not sure what type of food, but she thinks onion may triggers it. Pt denies any urge for BM after food Pt has mixed non-bloody loose stool and constipation. Pt denies any GERD or loss of appetite. Pt does c/o early satiety. Pt denies any postprandial abd pain. Pt denies any weight loss. Pt had normal upper GI and ultrasound. Pt states that her GI symptoms almost completely resolved with amitriptyline physical Pt needs annual physical Pt has chronic migraine headache for several years, usually related to skipping meal or if she needs to have BM. Pt has migraine 3-4 times per week. Pt states that she has migraine also if she has to stare at screen for long time. Pt denies any head injury or waking up at night with headache Pt has photophobia and nausea with headache. Pt denies any vision change. Pt feels abdominal bloating post food but not sure what type of food, but she thinks onion may triggers it. Pt denies any urge for BM after food Pt has mixed non-bloody loose stool and constipation. Pt denies any GERD or loss of appetite. Pt does c/o early satiety. Pt denies any postprandial abd pain. Pt denies any weight loss. Pt denies any appetite loss or nausea, vomiting sick Pt received 2nd dose of moderna COVID-1 vaccine on 07/30/20 and she developed some myalgia, mild headache and some fever the night of the shot. Pt denies any cough, sob, sore throat, GI issue, loss of taste and smell, etc Pt could not work due to above symptoms. Pt states that she still had a fever of 101 yesterday but she has not had any symptoms today. Pt needs a note to clear her from work and also excuse her from the two days work missed. Pt feels completely ok now anxiety1 PT did have anxi ety and depression which is situational which is getting better .Pt feels that the stress is gone and she does not feel that she needs cymbalta anymore. syncope1 pt woke up two d ays ago and feels tired and she passed out while in bathroom without showering and she woke up very quickly but not sure how long she is out. Her tried to lift her up and she feels that she can not move her right upper and lower extremity which resolved quickly .Pt did feel some numbness and tingling right arm and leg while in Er which resolved also completely .Pt states that she could not speak during the acute episode but she is aware of the surrounding. Pt states that she is able to speak after about 30 mins, Pt is fully consciousness, however. At ER, She had negative lab and CTA of head and neck and also head CT and EKG. Pt also notices some tremor in the morning while on cymbalta for the past several weeks .Pt currently is fully back to her baseline now. Pt denies any dizziness. Pt states that she is not shaking and no forming anxiety1 Pt has rather se kirt anxiety and depression, which is situational. Pt states that cymbalta helped tremendously. Pt states that she is back to her baseline mood .Pt feels happier with more interests in doing activities Pt denies any sexual side effects Pt denies any chest pain or headache yawning1 Pt notices incre asing yawning since taking cymbalta. Pt denies any fatigue or sob fatigue1 Pt states that f atigue and headache completely resolved with cymbalta. bilirubin Pt has high bili Pt denies any jaundice. Pt denies any abd pain physical Pt needs annual physical. Pt has mild eczema and she sees dermatology and she gets special compound topical including some abx and zinc, etc. Pt c/o feeling severely stressed lately with anxiety and depression which is causing some physical symptoms including nausea, fatigue, headache, muscle pain, poorly motivated, loss of interests, unable to get out of bed, frequent crying spells. Pt has loss of appetite. Pt denies any nausea, vomiting ,diarrhea Pt lost 7 pounds during last 2 months due to stress and poor eating .Pt thinks that all her physical symptoms are due to severe stress and anxiety and depression. Pt denies any abd pain .Pt denies any suicidal or homicidal thought. Instructions Date Instruction Additional Infor mation No Information Assessments Type Assessment Date assessment Acute bronchitis assessment Iron deficiency assessment Mixed irritable bowel syndrome S Mental Status Date Cognitive Assessment Orientation - [place] ed to time, place, person, situation.
--- NOTE | 2024-07-21 21:34 | ECG_ITS ---
Test Date: 2024-07-21 23:58:27 Measurements Intervals [place] Rate: 78 P: 43 HI: 189 QRS: -23 QRSD: 106 T: -2 QT: 362 QTc: 413 Interpretive Statements SINUS RHYTHM DELAYED PRECORDIAL R/S TRANSITION VOLTAGE CRITERIA FOR LVH MINIMAL Q WAVES- HIGH LATERAL LEADS BORDERLINE ST-T WAVE ABNORMALITY- ANT/INF LEADS BORDERLINE ECG No previous ECG available for comparison Electronically Signed On 07-22-2024 05:42:01 CDT by Adrian Pascual D.O.
--- NOTE | 2024-07-21 21:37 | ED_ITS ---
HPI - Chest Pain General Chief Complaint: Chest Pain Stated Complaint: chest pain Time Seen by Provider: 07/21/24 21:24 History of Present Illness HPI narrative: 43-year-old female with history of Gilbert's syndrome presents to the emergency department for chest pain and shortness of breath that started 30 minutes prior to arrival. Patient states she is short which she bends over and developed a sudden onset left-sided sharp chest pain. The chest pain has since been present occurs with deep inspiration. She describes it as a sharp and stabbing sensation. She denies radiating symptoms, exertional symptoms, cough or congestion, hemoptysis, lower extremity edema, recent surgeries or hospitalizations, fevers, history of VTE, use of estrogen or control, history of CAD or CVA. She denies first-degree family history of CVA or CAD. She does not smoke. Denies injury trauma to her chest. Related Data Home Medications ?Medication ?Instructions ?Recorded ?Confirmed ?Last Taken ?Type ferrous sulfate 324 mg (65 mg 324 mg PO DAILY 12/23/23 01/14/24 Unknown History iron) tablet,delayed release ekqdftbyrtug-nyokvowz-gblr 1 tablet PO DAILY 12/23/23 01/14/24 Unknown History fumarate 18 mg-folic acid 400 mcg tablet (One-A-Day Women's Complete) Allergies Allergy/AdvReac Type Severity Reaction Status Date / Time No Known Allergies Allergy Mild Verified 01/14/24 07:41 Review of Systems 2 Review of Systems: All systems reviewed & are unremarkable except as noted in HPI and below PMFSH Past Medical History Medical History Irritable bowel syndrome with constipation Nausea & vomiting Anxiety Social History Social History Smoking status: Never smoker Alcohol intake: never Substance use: never Substance use type: does not use Living arrangements: with family Spiritual care concerns: No Exam 2 Narrative: GENERAL: Well-appearing, well-nourished, and in no acute distress. Tearful, anxious HEAD: Normocephalic, atraumatic. EYES:EOMI. ENT: Nares clear, no rhinorrhea or epistaxis. Mucous membranes moist. NECK: Supple. CHEST: Clear to auscultation. No respiratory distress. HEART: Regular rate and rhythm. No murmur heard. Normal peripheral pulses. Tenderness to left costosternal border on palpation with no overlying skin changes ABDOMEN: Soft, nontender, nondistended, normal active bowel sounds. EXTREMITIES: Normal range of motion. No edema. Negative Homans bilaterally SKIN: Warm, dry, no rash. NEURO: No focal deficits. Alert and oriented x3 Course Vital Signs Vital signs: Vital Signs Temperature 97.7 F 07/21/24 22:09 Pulse Rate 85 07/21/24 22:09 Respiratory Rate 17 07/21/24 22:09 Blood Pressure 134/87 07/21/24 22:09 Pulse Oximetry 99 07/21/24 22:09 Temperature 97.7 F 07/21/24 22:09 Pulse Rate 73 07/22/24 01:58 Respiratory Rate 14 07/22/24 01:58 Blood Pressure 117/74 07/22/24 01:58 Pulse Oximetry 99 07/22/24 01:58 Oxygen Delivery Room Air 07/21/24 22:14 MDM - Chest Pain MDM Narrative Medical decision making narrative: 43-year-old female presents emergency department for sudden-onset left-sided pleuritic chest pain that started 30 minutes prior to arrival after bending over while in the shower. Triage vitals are stable. Patient is afebrile and nontoxic appearing. Exam significant reproducible tenderness to the left costosternal border. EKG shows normal sinus rhythm with rate of 78 ppm, normal SD interval, normal QRS duration QTC, nonspecific T-wave abnormality, borderline LAD, no ST elevations or depressions. Troponin undetectable x2. CBC without leukocytosis or anemia. Chemistries with mild hypokalemia of 3.1, magnesium within normal limits. Potassium was orally repleted. Lipase within normal limits. is negative. Chest x-ray shows blunting of the posterior costophrenic angle which may indicate minimal effusion, otherwise no acute cardiopulmonary pathology. Patient updated on results. She received Toradol for costochondritis with resolution of symptoms. Naproxen sent to pharmacy. Advised follow-up with PCP discussed strict ED return precautions. She is agreeable with the plan verbalized understanding. Discharged in stable condition. Lab Data 07/21/24 22:31 07/21/24 22:31 Labs: Lab Results 04/09/25 04/09/25 04/10/25 Range/Units 22:31 23:46 01:53 WBC 5.2 (4.5-10.0) K/mm3 RBC 4.27 (4.2-5.4) M/mm3 Hgb 12.7 (12.0-15.0) g/dL Hct 38.0 (37.0-47.0) % MCV 89.0 (80-100) fl MCH 29.7 (26-34) pg MCHC 33.4 (32-36) g/dl RDW 12.7 (11.5-14.5) % Plt Count 235 (150-375) k/mm3 MPV 10.1 (7.4-10.4) fl Immature Gran % (Auto) 0.4 (0-0.5) % Neut % (Auto) 43.8 L (45.5-73.1) % Lymph % (Auto) 43.3 (18.3-44.2) % [place] % (Auto) 9.4 H (2.6-8.5) % Eos % (Auto) 2.1 (0-4.4) % Baso % (Auto) 1.0 (0.2-1.2) % Lymph # (Auto) 2.27 (0.9-3.2) K/mm3 [place] # (Auto) 0.5 (0.1-0.6) K/mm3 Eos # (Auto) 0.1 (0-0.3) K/mm3 Baso # (Auto) 0.1 (0.0-0.1) K/mm3 Abs Immat Gran (auto) 0.02 (0.00-0.031) K/mm3 Absolute Neuts (auto) 2.3 (1.3-6.7) K/mm3 Absolute Nucleated RBC 0.000 (0.0-0.012) K/mm3 Nucleated RBC % 0.0 (0.0-0.2) % PT 12.8 (11.1-14.7) Seconds INR 0.9 APTT 23.3 (22.3-36.8) Seconds Sodium 138 (137-145) mmol/L Potassium 3.1 L (3.4-5.0) mmol/L Chloride 105 (98-107) mmol/L Carbon Dioxide 25 (22-30) mmol/L Anion Gap 8 (4-12) mmol/L BUN 8 (7-17) mg/dL Creatinine 0.79 (0.7-1.0) mg/dL Estim Creat Clear Calc 70 ml/min Estimated GFR > 60 (59 - ) Glucose 104 (65-110) mg/dL Calcium 8.8 (8.4-10.2) mg/dL Magnesium 1.7 (1.6-2.3) mg/dL Total Bilirubin 0.8 (0.2-1.3) mg/dL AST 20 (14-36) U/L ALT 12 (6-35) U/L Alkaline Phosphatase 89 (38-126) U/L Troponin I < 0.012 < 0.012 (0.000-0.034) ng/mL Total Protein 7.0 (6.3-8.2) g/dL Albumin 4.1 (3.5-5.1) g/dL Lipase 73 (23-300) U/L POC Urine HCG, Qual Negative (Negative) Discharge Plan Discharge Clinical Impression: Costochondritis, Acute hypokalemia Patient Disposition: Home Condition: Stable Instructions: Antibiotic Form, Costochondritis (ED) Additional Instructions: You were evaluated in the emergency department for chest pain. Your presentation is consistent with costochondritis as discussed. Please take the anti-inflammatories as directed and follow-up closely with her primary care provider. Your ossified have low potassium which was repleted, please have your labs checked again by your PCP. Return to the emergency department if you develop new or worsening symptoms. Patient Language: Lebanese Prescriptions: New naproxen 500 mg tablet 500 mg PO BID PRN (Reason: pain) Qty: 20 0RF No Action ferrous sulfate 324 mg (65 mg iron) Tablet,Delayed Release (Dr/Ec) 324 mg PO DAILY One-A-Day Women's Complete 18 mg iron- 400 mcg Tablet 1 tablet PO DAILY Follow-up/Referrals: Clint Sherman MD [Primary Care Provider] -
--- OUTSIDE RECORDS SUMMARY | 2024-07-21 21:39 | XMS_ITS | Clinical Summary ---
Author Organization [facility] Address [address] [place] [address] Care Team Providers Care Semiconductor Technician Name Role Phone Clint Sherman MD Primary Care Provider [phone] Source Comments [facility],non-owned Affiliates and Associated Physician Practices is amultiple site organization consisting of ambulatory clinics and hospital sitesin [place], [place], [place] and [place]. This disclosure is being madepursuant to the Care Everywhere program and may not contain all information available regarding this patient. Last updated 18.[facility] Allergies No known active allergies Medications Be [...] Comments Blood Pressure 110/60 02/21/2019 3:07 PM SEPTIC TANK SERVICER Pulse 88 02/21/2019 3:07 PM SEPTIC TANK SERVICER Temperature 36.6 C (97.8 F) 02/21/2019 3:07 PM SEPTIC TANK SERVICER Respiratory Rate 16 02/21/2019 3:07 PM SEPTIC TANK SERVICER Oxygen Saturation 98% 02/21/2019 3:07 PM SEPTIC TANK SERVICER Inhaled Oxygen Concentration - - Weight 65.8 kg (145 lb) 02/21/2019 3:07 PM SEPTIC TANK SERVICER Height 162.6 cm (5' 4 ) 02/21/2019 3:07 PM SEPTIC TANK SERVICER Body Mass Index 24.89 02/21/2019 3:07 PM SEPTIC TANK SERVICER Plan of Treatment Health Maintenance Due Date [...] age to complete this topic Care Teams Semiconductor Technician Relationship Specialty Start Date End Date Clint Sherman MD [facility] [place] [address] PCP - General 06/21/22
--- OUTSIDE RECORDS SUMMARY | 2024-07-21 21:39 | XMS_ITS | Continuity of Care Document ---
Author Organization [facility] Address [address] [place] [address] [place] [address] Phone Care Team Providers Care Hybrid Tester Name Role Phone Clint Sherman MD Unavailable [...] Providers Copied on Encounter OFFICE/OUTPA TIENT VISIT, [facility], [address], [place], [place], [id number], tel:[phone] [facility] GI (chief complaint) cough1 (chief complaint) iron (chief complaint) Acute bronchitisIron deficiencyMixed irritable bowel syndrome [address], [address], [place], [place], [address] , [place]. tel:[phone] PREV VISIT, EST, AGE 40-64 [facility], [address], [place], [place], [address], [place] tel:[phone] [facility] physical (chief complaint) Encounter for general adult medical exam w abnormal findingsMixed irritable bowel syndromeAbnormal weight lossAlopeciaHalitos is [address], [address], [place], [place], [address] , [place]. tel:[phone] OFFICE/OUTPA TIENT VISIT, EST [facility], [address] [place], [address], [place] tel:[phone] [facility] nevus1 (chief complaint) ADD (chief complaint) IBS1 (chief complaint) migraine1 (chief complaint) Inconclusive mammogramNevus, non-neoplasticAtten tion deficitMigraine without aura, not intractable, without status migrainosusMixed irritable bowel syndrome [address], [address], [place], [place], [address] , [place]. [phone] OFFICE/OUTPA TIENT VISIT, [facility], [address] [place], [address], [place] tel:[phone] [facility] mole1 (chief complaint) ADD (chief complaint) right breast mass1 (chief complaint) Lump in the right breastNevus, non-neoplasticAtten tion deficit [address], [address], [place], [place], [address] , [place]. tel:[phone] PREV VISIT, EST, AGE 40-64 [facility], [address], [place], [place], [address], [place] tel:[phone] [facility] physical (chief complaint) Lump in the right breastEncounter for general adult medical exam w abnormal findingsMigraine without aura, not intractable, without status migrainosusMixed irritable bowel syndromeGilbert syndrome [address], [address], [place], [place], [address] , [place]. tel:[phone] OFFICE/OUTPA TIENT VISIT, EST [facility], [address], [place], [place], [address], [place] tel:[phone] [facility] IBS1 (chief complaint) migraine1 (chief complaint) cyst1 (chief complaint) breast1 (chief complaint) Mixed irritable bowel syndromeEpidermal cystMigraine without aura, not intractable, without status migrainosusLump in the right breast [address], [address], [place], [place], [address] , [place]. tel:[phone] OFFICE/OUTPA TIENT VISIT, EST [facility], [address], [place], [place], [address], [place] tel:[phone] [facility] GI (chief complaint) migraine1 (chief complaint) cyst1 (chief complaint) Mixed irritable bowel syndromeChronic migraine w/o aura, not intractable, w/o stat migrEpidermal cystAllergy to other foods [address], [address], [place], [place], [address] , [place]. tel:[phone] OFFICE/OUTPA TIENT VISIT, EST [facility], [address], [place], [place], [address], [place] tel:[phone] [facility] GI (chief complaint) migraine1 (chief complaint) bili1 (chief complaint) Mixed irritable bowel syndromeMigraineDis order of bilirubin metabolism, unspecifiedAllergy to other foods [address], [address], [place], [place], [address] , [place]. [phone] PREV VISIT, EST, AGE 18-39 [facility], [address], [place], [place], [address], [place] tel:[phone] [facility] physical (chief complaint) Encounter for general adult medical exam w abnormal findingsDisorder of bilirubin metabolism, unspecifiedMigraine Mixed irritable bowel syndrome [address], [address], [place], [place], [address] , [place]. tel:[phone] OFFICE/OUTPA TIENT VISIT, [facility], [address], [place], [place], [address], [place] tel:[phone] [facility] sick (chief complaint) Viral infection [address], [address], [place], [place], [address] , [place]. tel:[phone] OFFICE/OUTPA TIENT VISIT, [facility], [address], [place], [place], [address], [place] tel:[phone] [facility] syncope1 (chief complaint) anxiety1 (chief complaint) DepressionSyncope and collapseParesthesia of skin [address], [address], [place], [place], [address] , [place]. tel:[phone] OFFICE/OUTPA TIENT VISIT, EST [facility], [address], [place], [place], [address], [place] tel:[phone] [facility] bilirubin (chief complaint) fatigue1 (chief complaint) yawning1 (chief complaint) anxiety1 (chief complaint) FatigueHeadache, unspecifiedDepressi onDisorder of bilirubin metabolism, unspecifiedProteinu main [address], [address], [place], [place], [address] , [place]. tel:[phone] PREV VISIT, NEW, AGE 18-39 [facility], [address] [place], [place], [address], tel:[phone] [facility] Medicine physical (chief complaint) Encounter for general adult medical exam w abnormal findingsFatigueHead acheDepression [address], [place], [place], [address] , [place]. tel:[phone] Family History Family Member Type Diagnosis Age At Onset Mother Problem Alive and well Sister Problem Thyroid disorder Brother Problem Alive and well Father Problem of lung CA (Cause Of De ath) 48 Payers Payer name Insurance type Covered green party ID Authoriza tion(s) No Information Social History [...] -Podiatric Medicine & Surgery Service Providers : Masticator (related to Nevus, non-neoplastic) ordered Referral Referred To: SUJEY GARCIA [facility] [facility],[address] [place], [place], [phone] Ordered: Referrals: Podiatric Medicine & Surgery Service Providers : Masticator. SUJEY GARCIA. Evaluate and treat ordered Referral Ordered: [place] GUIDANCE ordered Referral Ordered: MAMMOGRAM, BOTH BREASTS ordered Referral Ordered: Otolaryngology (related to Epidermal cyst) ordered Referral Ordered: Referrals: Otolaryngology. Evaluate and treat ordered Referral Referred To: Chandrakant Gonzalez MD [address] [facility]
[place], [address] Ordered: Referrals: Chandrakant Gonzalez MD Evaluate and [...] amitriptyline due to hair loss from amitriptyline. ADD Pt c/o feeling i nability to focus and concentrate and complete tasks for long time Pt keeps interrupting other people conversation Pt feels easily distracted .Pt has difficult time completing projects and she feels that her brain is all over the place. Pt has above symptoms for years. Pt feels that it is affecting her performance at work. Pt picked up concerta recently but she has not started it yet IBS1 Pt has history o f mixed IBS with diarrhea and constipation and bloating. She does have mild food allergy. She was evaluated by inventory control specialist and she was found to have [...] weight loss, early satiety, GI bleeding, etc nevus1 Pt has dark nevu s left plantar surface of foot and she saw podiatry and had negative biopsy. migraine1 Pt has history o f migraine headache Pt denies any head injury or waking up at night with headache Pt has not had any migraine since on amitriptyline. mole1 Pt notices a katelyn k mole bottom of left foot for one year and seems getting bigger and darker. Pt denies any bleeding ADD Pt c/o feeling i nability to focus and concentrate and complete tasks for long time Pt keeps interrupting other people conversation Pt feels easily distracted .Pt has difficult time completing projects and she feels that her brain is all over the place. Pt has above symptoms for years. Pt feels that it is affecting her performance at work right breast mass1 Pt denies any breast issue Pt did have right breast cyst biopsied which was benign fibroadenoma. physical Pt needs annual physical. Pt has [...] feels well. Pt denies any other complaints IBS Pt has history o f mixed IBS with diarrhea and constipation and bloating. She does have mild food allergy. She was evaluated by inventory control specialist and she was found to have mild environmental allergy as well but not bad to take any medication. She was told food allergy is benign. pt does not have any anaphylactic reaction to food. Pt states that her GI symptoms are much improved with amitriptyline. Pt needs refill migraine1 Pt has not had a ny migraine since starting amitriptyline. Pt denies any head injury or waking up at night with headache. cyst1 Pt has intermitt ent cystic lesion behind left ear. She was evaluated by ENT as well. Her cyst is benign and has not been recurring breast1 Pt noticed a sma ll nontender right breast lump several weeks and subsequently went away. Pt denies any breast pain, redness, warmth, discharge, deformity, axillary lymph, etc. GI Pt feels abdomin al bloating post [...] U allergy until May of next year migraine1 Pt has chronic m igraine headache [...] while on amitriptyline. Pt does drink socially cyst1 pt had recurrent cystic lesion behind left ear lobe for two months Pt notices occasional pus drainage from it. Pt denies any itching Pt notices mild pain when she pushes on it. Pt denies any ear pain Pt denies any bleeding. Pt denies any lymph node around her neck, etc Pt denies any acute drainage. Pt denies any redness or warmth. GI Pt feels abdomin al bloating post [...] GI symptoms almost completely resolved with amitriptyline migraine1 Pt has chronic m igraine headache [...] that her headache completely resolved with amitriptyline bili1 Pt has high bili . Pt denies any abd pain or jaundice pt rarely drinks alcohol. Pt had normal abd ultrasound physical Pt needs annual physical Pt has [...] she is not shaking and no forming bilirubin Pt has high bili Pt denies any jaundice. Pt denies any abd pain fatigue1 Pt states that f atigue and headache completely resolved with cymbalta. yawning1 Pt notices incre asing yawning since taking cymbalta. Pt denies any fatigue or sob anxiety1 Pt has rather se kirt anxiety and depression, which is situational. Pt states that cymbalta helped tremendously. Pt states that she is back to her baseline mood .Pt feels happier with more interests in doing activities Pt denies any sexual side effects Pt denies any chest pain or headache physical Pt needs annual physical. Pt has [...] Mental Status Date Cognitive Assessment Orientation - Martin ed to time, place, person, situation.
--- OUTSIDE RECORDS SUMMARY | 2024-07-21 21:39 | XMS_ITS | Clinical Summary ---
Author Organization [facility] Address [address] [place] [address] Care Team Providers Care District Manager Primary Care Sales Name Role Phone Mike Tiwari MD Primary Care Provider [phone] Allergies No known active allergies Medications polyethylene [...] on file Legal Sex Female 11:08 AM BREAD PANNER Gender Identity Not on file Sexual Orientation Not on file Last Filed Vital Signs Vital Sign Reading Time Taken Comments Blood Pressure 123/76 03/05/2017 1:29 PM BREAD PANNER Pulse 77 03/05/2017 1:29 PM BREAD PANNER Temperature 37.2 C (99 F) 02/15/2017 8:27 AM CDT Respiratory Rate 16 02/15/2017 2:25 AM CDT Oxygen Saturation 99% 02/15/2017 8:27 AM CDT Inhaled Oxygen Concentration - - Weight 63.5 kg (140 lb) 03/05/2017 1:29 PM BREAD PANNER Height 160 cm (5' 3 ) 03/05/2017 1:29 PM BREAD PANNER Body Mass Index 24.8 03/05/2017 1:29 PM BREAD PANNER Plan of Treatment Health Maintenance Due Date [...] this topic Medical Devices Implanted Type Area Home Theater Specialist Device Identifier Shelf Expiration Date Model / Serial / Lot Mesh Mod Kugel Rnd 11.5cm [id number] - [id number] Implanted:Qt y: 1 on 02/14/2017 by Doni Gar III, MD at [facility] Mesh N/A: Abdomen CR [employer] 09/11/2017 [id number] / / [id number] Sealant Floseal 10ml [id number] - [id number] Implanted:Qt y: 1 on 02/14/2017 by Doni Gar III, MD at [facility] Sealant N/A: Abdomen NELSON[employer] [id number] 03/13/2018 [id number] / / [id number] Procedures Procedure Name Priority Date/Time Associated Diagnosis Comments CERV/VAG CYTO SCREEN PAP W/HPV Routine 05/25/2015 4:31 PM BREAD PANNER Well woman exam with routine gynecological exam from Last 3 Months or Most Recently Relevant to Health Maintenance Results * CERV/VAG CYTOPATH, THIN PREP COLLEGE INSTRUCTOR AND HPV (CP) (05/25/2015 4:31 PM BREAD PANNER) CLINICAL INFORMATION SEE COMMENT 05/30/2015 2:05 PM BREAD PANNER [facility] Comment:Information not prov ided LAST MENSTRUAL PERIOD SEE COMMENT 05/30/2015 2:05 PM BREAD PANNER [facility] Comment:INFORMATION NOT PROV IDED PREV PAP: SEE COMMENT 05/30/2015 2:05 PM BREAD PANNER [facility] Comment:INFORMATION NOT PROV IDED PREV BX: SEE COMMENT 05/30/2015 2:05 PM BREAD PANNER [facility] Comment:INFORMATION NOT PROV IDED SOURCE Endocervix 05/30/2015 2:05 PM BREAD PANNER [facility] ADEQUACY: SEE COMMENT 05/30/2015 2:05 PM BREAD PANNER [facility] Comment: Satisfactory for evaluation. Endocervical/transformation zone component present. Age and/or menstrual status not provided INTERPRETATION SEE COMMENT 05/30/2015 2:05 PM BREAD PANNER [facility] Comment:Negative for intraep ithelial lesion or malignancy. COMMENT SEE COMMENT 05/30/2015 2:05 PM BREAD PANNER [facility] Comment: This Pap test has been evaluated with computer assisted technology. CABLE TENDER: SEE COMMENT 05/30/2015 2:05 PM BREAD PANNER [facility] Comment: BAB, CT(ASCP) CT screening location: [place] [address] [address] [facility] REVIEW CABLE TENDER: SEE COMMENT 05/30/2015 2:05 PM BREAD PANNER [facility] Comment: TAO, CT(ASCP) CT screening location: [place] [address] [address] [facility] HPV E6/E7 Not Detected Not Detected 05/30/2015 2:05 PM BREAD PANNER [facility] Comment: This test was performed using the APTIMA HPV Assay ([employer] This assay detects E6/E7 viral messenger RNA (mRNA) from 14 high-risk HPV types (16,18,31,33,35,39,45,51,52,56,58,59,66,68). Endocervical Collection / Unknown 05/25/2015 4:31 PM BREAD PANNER 05/25/2015 7:12 PM BREAD PANNER Narrative [facility] - 05/30/2015 2:05 PM BREAD PANNER Performing Organization Information: Site ID: SL Name: [facility] Address: [address] [place] [address] Director: Cindy Lewis MD us Elaine Carrillo MD PATHOLOGY/CYTOLOGY ORDERABLES Final Result [facility] [id number] [place] [address], from Last 3 Months or Most Recently Relevant to Health [place] [address] Cozy OPEN ACCESS Advance Directives For more information, please contact: [phone] * Full Code (Latest Code Status on File) Date Activated Date Inactivated Comments 02/14/2017 7:44 PM 02/15/2017 1:31 PM * Full Code Date Activated Date Inactivated Comments 02/14/2017 3:42 PM 02/14/2017 7:44 PM * Full Code Date Activated Date Inactivated Comments 02/14/2017 2:06 PM 02/14/2017 3:42 PM Care Teams District Manager Primary Care Sales Relationship Specialty [place] [address] [facility] [address] [place] [id number] PCP - General Family Practice 01/29/17
--- OUTSIDE RECORDS SUMMARY | 2024-07-21 21:39 | XMS_ITS | Clinical Summary ---
Author Organization [facility] Address [address], [address] [place] [address] Phone Care Team Providers Care Security Door Installer Name Role Phone Clint Sherman Primary Care Provider [phone] Mojgan Dyson MD Unavailable Allergies Active Allergy Reactions Criticality Noted Date Comments Venus-Containing Products Vomiting 02/03/2024 Oxycodone Nausea Low 05/30/2023 Wound Dressing Adhesive Rash Medium 05/27/2023 Medications albuterol 108 (90 Base) MCG/ACT Aerosol Solution take 1 Puff by inhalation every 4 hours as needed. Active polyethylene glycol (GLYCOLAX) 17 GM/SCOOP Powder Take 17 g by mouth. Active ibuprofen (Advil) 200 MG Tablet Take 200 mg by mouth every 8 hours as needed. Active Multiple Vitamins-Bexar als (MULTIVITAL PO) Take by mouth. Activ [...] CDT Office Visit [facility] [address] [phone] Neena Mcgee APRN, MACHINE DYER Iron deficiency (Primary Dx); Abnormal uterine bleeding (AUB) 06/22/2024 Travel 06/16/2024 3:20 PM PRESS HAND SUPERVISOR Lab [facility] [address] [id number] Lab, [facility] [place] Iron deficiency; [...] CDT Office Visit [facility] [address] [phone] Mojgan Dyson MD [address] [place] [id number] Health Maintenance Due Date Last Done [...] AUTO DIFF [place] Routine 06/16/2024 3:43 PM PRESS HAND SUPERVISOR IRON W/ IRON BINDING CAPACITY OH Routine 06/16/2024 3:43 PM PRESS HAND SUPERVISOR Iron deficiency Other fatigue Abnormal uterine bleeding (AUB) FERRITIN Routine 06/16/2024 3:43 PM PRESS HAND SUPERVISOR Iron deficiency Other fatigue Abnormal uterine bleeding (AUB) RETICULOCYTE COUNT (RETIC) Routine 06/16/2024 3:43 PM PRESS HAND SUPERVISOR Iron deficiency Other fatigue Abnormal uterine bleeding (AUB) from Last 3 Months Results * IRON W/ IRON BINDING CAPACITY [place] (06/16/2024 3:43 PM PRESS HAND SUPERVISOR) IRON 101 50 - 212 ug/dL [facility] UIBC 222 155 - 355 ug/dL [facility] TIBC 323 261 - 478 ug/dl CANC[facility] SUPERVISOR POWDER AND PRIMER [facility] % Saturation 31 20 - 50 % CANCER SUPERVISOR POWDER AND PRIMER [facility] 06/16/2024 3:43 PM PRESS HAND SUPERVISOR Narrative CANCER SUPERVISOR P[employer] [employer]IM[employer] [facility] - 06/17/2024 8:52 AM PRESS HAND SUPERVISOR Release to patient->Immediate us Halley Samuels APRN, MACHINE DYER LAB SEND OUTS F inal Result CANCER SUPERVISOR POWDER AND PRIMER [facility] [place] [address], * (ABNORMAL) CBC WITH AUTO DIFF [place] (06/16/2024 3:43 PM PRESS HAND SUPERVISOR) WBC 5.4 4.0 - 10.0 10*3/uL CANCER SUPERVISOR POWDER AND PRIMER [facility] HGB 14.3 11.2 - 15.7 g/dL CANCER SUPERVISOR POWDER AND PRIMER [facility] HCT 42.8 34.1 - 44.9 % CANCER SUPERVISOR POWDER AND PRIMER [facility] PLT 261 163 - 369 10*3/uL CANCER SUPERVISOR P[employer]DER AND PRIMER [facility] MPV 10.2 9.4 - 12.4 fL CANCER SUPERVISOR POWDER AND PRIMER [facility] RBC 4.84 3.93 - 5.22 10*6/uL CANCER SUPERVISOR POWDER AND PRIMER [facility] MCV 88 79 - 95 fL CANCER SUPERVISOR POWDER AND PRIMER [facility] MCH 29.5 25.6 - 32.2 pg CANCER SUPERVISOR P[employer]DER AND PRIMER [facility] MCHC 33.4 32.2 - 36.5 g/dL CANCER SUPERVISOR POWDER AND PRIMER [facility] RDW 12.7 11.6 - 14.4 % CANCER SUPERVISOR P[employer] AND PRIMER [facility] Neutrophils % 44.8 36.0 - 66.0 % CANCER SUPERVISOR P[employer] AND PRIM[employer] [facility] Lymphocytes % 41.3(H) 19.0 - 40.0 % CANCER SUPERVISOR POWDER AND PRIMER [facility] Monocytes % 10.0 4.1 - 12.1 % CANCER SUPERVISOR POWDER AND PRIMER [facility] Eosinophils % 2.6 0.0 - 3.5 % CANCER SUPERVISOR P[employer]DER AND PRIMER [facility] Basophils % 1.1(H) 0.0 - 1.0 % CANCER SUPERVISOR POWDER AND PRIMER [facility] Absolute Neutrophils 2.4 1.4 - 6.6 10*3/uL CANCER SUPERVISOR POWDER AND PRIMER [facility] Absolute Lymphocytes 2.2 0.8 - 4.0 10*3/uL CANCER SUPERVISOR POWDER AND PRIMER [facility] Absolute Monocytes 0.5 0.2 - 1.2 10*3/uL CANCER SUPERVISOR POWDER AND PRIMER [facility] Absolute Eosinophils 0.1 0.0 - 0.4 10*3/uL [facility] Absolute Basophils 0.1 0.0 - 0.1 10*3/[facility] SUPERVISOR [facility] 06/16/2024 3:43 PM PRESS HAND SUPERVISOR Halley Samuels APRN, SUSAN LAB SEND OUTS F inal Result Performing Organization Address [facility] Co de Phone Number [facility] [place] [address], * RETICULOCYTE COUNT (RETIC) (06/16/2024 3:43 PM PRESS HAND SUPERVISOR) Pathologist [facility] Reticulocyte count 1.33 0.50 - 1.70 % [facility] RET-He 34.10 28.20 - 36.[address] [facility] Comment: RET-He is a direct assessment of incorporation of iron into erythrocyte hemoglobin. It provides an indirect measure of the iron available for new erythropoiesis over past 2-4 days. Blood 06/16/2024 3:43 PM PRESS HAND SUPERVISOR Narrative [facility] - 06/16/2024 3:53 PM PRESS HAND SUPERVISOR Release to patient->Immediate Halley Samuels APRN, CNP HEMATOLOGY ORDERA BLES Final Result Performing Organization Address [facility] de Phone Number [facility] SUPERVISOR POWDER [facility] [place] [address], * FERRITIN (06/16/2024 3:43 PM PRESS HAND SUPERVISOR) Ferritin 48 11 - 307 ng/mL [facility] Blood 06/16/2024 3:43 PM PRESS HAND SUPERVISOR Narrative [facility] - 06/17/2024 3:17 PM PRESS HAND SUPERVISOR Release to patient->Immediate Halley D Abril SPECIAL EFFECTS TECHNICIAN, MACHINE DYER CHEMISTRY ORDERAB LES Final Result CANCER SUPERVISOR POWDER AND PRIMER [facility] [place] [address], from Last 3 Months Insurance [employer] [facility] OAP Care Teams Security Door Installer Relationship Specialty Start Date End Date Clint Sherman [address] [place] [address] PCP - General Family Medicine 01/02/24 Mojgan Dyson MD [address] [place] [address] Consulting Physician Oncology 01/02/24
[2024-07-21 22:09] VITALS: BP 134/87; PULSE 85; RESP 17; TEMP 36.5; O2SAT 99
[2024-07-21 22:14] VITALS: O2SAT 99
[2024-07-21 22:15] VITALS: PULSE 81
[2024-07-21 22:47] LABS: Basophils Absolute Auto 0.1 K/mm3 (0.0-0.1); Eosinophils Absolute Auto 0.1 K/mm3 (0-0.3); Eosinophils Percent Auto 2.1 % (0-4.4); Hemoglobin 12.7 g/dL (12.0-15.0); Immature Granulocyte Absolute 0.02 K/mm3 (0.00-0.031); Immature Granulocyte Percent A 0.4 % (0-0.5); Lymphocytes Absolute Auto 2.27 K/mm3 (0.9-3.2); Lymphocytes Percent Auto 43.3 % (18.3-44.2); Mean Corpuscular HGB Conc 33.4 g/dl (32-36); Mean Corpuscular Hemoglobin 29.7 pg (26-34); Mean Platelet Volume 10.1 fl (7.4-10.4); Monocytes Absolute Auto 0.5 K/mm3 (0.1-0.6); Monocytes Percent Auto 9.4 % (2.6-8.5); Neutrophils Absolute Auto 2.3 K/mm3 (1.3-6.7); Neutrophils Percent Auto 43.8 % (45.5-73.1); Platelet Count Result 235 k/mm3 (150-375); Red Blood Count 4.27 M/mm3 (4.2-5.4); Red Cell Distribution Width 12.7 % (11.5-14.5); White Blood Count 5.2 K/mm3 (4.5-10.0)
[2024-07-21 22:56] LABS: Alanine Aminotransferase 12 U/L (6-35); Albumin Level 4.1 g/dL (3.5-5.1); Alkaline Phosphatase 89 U/L (38-126); Anion Gap 8 mmol/L (4-12); Aspartate Amino Transferase 20 U/L (14-36); Bilirubin,Total 0.8 mg/dL (0.2-1.3); Blood Urea Nitrogen 8 mg/dL (7-17); Calcium 8.8 mg/dL (8.4-10.2); Carbon Dioxide 25 mmol/L (22-30); Chloride 105 mmol/L (98-107); Estimated CRCL calculation 70 ml/min; Estimated Glomerular Filt Rate > 60; Glucose 104 mg/dL (65-110); Lipase 73 U/L (23-300); Potassium 3.1 mmol/L (3.4-5.0); Sodium 138 mmol/L (137-145)
[2024-07-21 22:58] LABS: INR 0.9; Partial Thromboplastin Time 23.3 Seconds (22.3-36.8); Prothrombin Time 12.8 Seconds (11.1-14.7)
[2024-07-21 23:07] LABS: Troponin I < 0.012 ng/mL (0.000-0.034)
[2024-07-21 23:46] VITALS: BP 125/83; PULSE 68; RESP 16; O2SAT 100
--- NOTE | 2024-07-21 23:47 | PC.NURSE ---
pt refused an IV from this RN. PA made aware
[2024-07-21 23:50] LABS: BEDSIDEPREGUCG Negative (Negative)
[2024-07-22 00:01] LABS: Magnesium 1.7 mg/dL (1.6-2.3)
[2024-07-22] MEDS: KETOROLAC 30 MG/ML VIAL (*BKC) IM (00:06)
[2024-07-22] MEDS: POTASSIUM CHLORIDE 20 MEQ PACKET (FOR LIQUID) 40 MEQ PO (00:06)
--- NOTE | 2024-07-22 01:31 | ECG_ITS ---
Test Date: 2024-07-22 01:50:33 Measurements Intervals [place] Rate: 80 P: 17 CA: 180 QRS: -24 QRSD: 77 T: 6 QT: 354 QTc: 411 Interpretive Statements SINUS RHYTHM DELAYED PRECORDIAL R/S TRANSITION VOLTAGE CRITERIA FOR LVH MINIMAL Q WAVES- HIGH LATERAL LEADS BORDERLINE ST-T WAVE ABNORMALITY- ANT/INF LEADS BASELINE ARTIFACT- I, II, III, AVR, AVL, AVF, V4-V6 BORDERLINE ECG Compared to ECG 07/21/2024 23:58:27 No significant changes Electronically Signed On 07-22-2024 05:43:09 CDT by Adrian Pascual D.O.
[2024-07-22 01:58] VITALS: BP 117/74; PULSE 73; RESP 14; O2SAT 99
[2024-07-22 02:19] LABS: Troponin I < 0.012 ng/mL (0.000-0.034)
== END 2024-07-22 03:26 | disposition home or self-care (01) ==
PROVIDERS: Emergency Provider Physician Assistant; PCP Emergency Medicine
DX: M94.0 Chondrocostal junction syndrome [Tietze] (principal); E87.6 Hypokalemia; E80.4 Gilbert syndrome; K58.1 Irritable bowel syndrome with constipation; R94.31 Abnormal electrocardiogram [ECG] [EKG]
CPT/HCPCS: 36415; 71046; 80053; 81025; 83690; 83735; 84484; 85025; 85610; 85730; 93005; 96372; 96374; 99284; A9270; J1885